=== PATIENT | female | born 1945 | race Caucasian/White ===

== ENCOUNTER → 2017-12-23 13:23 | Outpatient (CLI) | payer OTHER, SELFPAY ==
--- NOTE | 2017-12-23 | DI.MG.S_ITS ---
BILATERAL DIGITAL SCREENING MAMMOGRAM 3D/2D WITH CAD: 12/23/2017 CLINICAL: Routine screening. Comparison is made to exams dated: 08/04/2015 mammogram, 08/12/2013 mammogram, and 08/11/2012 mammogram - [facility]. There are scattered fibroglandular elements in both breasts. Current study was also evaluated with a Computer Aided Detection (CAD) system. No significant masses, calcifications, or other findings are seen in either breast. There has been no significant interval change. IMPRESSION: NEGATIVE There is no mammographic evidence of malignancy. A 1 year screening mammogram is recommended. This exam was interpreted at Station ID: [id number]. NOTE: For mammograms, a report in lay terms will be sent to the patient. Approximately 15% of breast malignancies will not be visualized mammographically. In the management of a palpable breast mass, a negative mammogram must not discourage biopsy of a clinically suspicious lesion. Electronically Signed By: Kobi olvera/kadeem:12/23/2017 16:17:09 letter sent: Normal Exam ACR BI-RADS Category 1: Negative [id number]
== END ==
PROVIDERS: Family Provider Internal Medicine; PCP Internal Medicine
DX: Z12.31 Encounter for screening mammogram for malignant neoplasm of breast (principal)
CPT/HCPCS: 77063; 77067

== ENCOUNTER → 2018-02-25 07:28 | Outpatient (CLI) | payer OTHER, SELFPAY ==
[2018-02-25 08:26] LABS: Hemoglobin A1C% w Est Avg Glu 5.6 % (4.0-6.0)
[2018-02-25 08:29] LABS: Blood Urea Nitrogen 34 mg/dL (7-17); Calcium 9.8 mg/dL (8.4-10.2); Carbon Dioxide 26 mmol/L (22-32); Chloride 102 mmol/L (98-107); Estimated Glomerular Filt Rate 29.6 mL/min (>60); Glucose 108 mg/dL (80-110); HEMOLYSIS < 15 (0-50); Sodium 138 mmol/L (137-145)
== END ==
PROVIDERS: Family Provider Internal Medicine; PCP Internal Medicine; Visit Provider Internal Medicine
DX: I10 Essential (primary) hypertension (principal); E11.9 Type 2 diabetes mellitus without complications; N18.2 Chronic kidney disease, stage 2 (mild)
CPT/HCPCS: 36415; 80048; 83036

== ENCOUNTER → 2018-03-03 11:19 | Outpatient (CLI) | payer OTHER, SELFPAY ==
[2018-03-03 12:13] LABS: Add Manual Diff / Slide Review NO; Basophils Percent Auto 1.1 % (0-2); Eosinophils Percent Auto 12.3 % (2-4); Hematocrit 30.4 % (36-46); Hemoglobin 10.5 g/dL (12.0-16.0); Lymphocytes Percent Auto 20.7 % (25-40); Mean Corpuscular HGB Conc 34.4 % (30-36); Mean Corpuscular Hemoglobin 30.9 PG (26-34); Mean Corpuscular Volume 89.8 fL (80-100); Monocytes Percent Auto 6.2 % (3-14); Neutrophils Absolute Auto 3500 /uL (3000-5900); Neutrophils Percent Auto 59.7 % (50-75); Platelet Count 307 X10^3/uL (150-400); Red Blood Cell Count 3.39 X10^6/uL (4.0-5.2); Red Cell Distribution Width 13.3 % (11.6-14.8); White Blood Cell Count 5.9 X10^3/uL (4.5-11.0)
[2018-03-03 14:10] LABS: Free T4, Direct Thyroxine 1.04 ng/dL (0.78-2.19)
[2018-03-03 14:24] LABS: Thyroid Stimulating Hormone 2.14 uIU/mL (0.47-4.68)
== END ==
PROVIDERS: Family Provider Internal Medicine; PCP Internal Medicine; Visit Provider Internal Medicine
DX: G47.00 Insomnia, unspecified (principal); J00 Acute nasopharyngitis [common cold]; R53.83 Other fatigue
CPT/HCPCS: 36415; 84439; 84443; 85025

== ENCOUNTER → 2018-04-23 13:03 | Outpatient (CLI) | payer OTHER, SELFPAY ==
--- NOTE | 2018-04-23 | DI.US.S_ITS ---
PROCEDURE: US RENAL COMPLETE INDICATIONS: CKD POST MENOPAUSAL TECHNIQUE: Real-time scanning was performed of the kidneys and bladder, with image documentation. COMPARISON: None. FINDINGS: Kidneys: Kidneys are normal in size. Right kidney measures 10.5 cm long; left kidney measures 10.6 cm long. Right renal cortical thickness is 1.6 cm; left renal cortical thickness is 1.4 cm. Renal cortical echotexture is slightly increased bilaterally. No hydronephrosis or nephrolithiasis. No suspicious solid mass lesions. 1.3 cm right renal cortical cyst. Bladder: Pre-void bladder volume is 37 mL. Post-void residual is not assessed. Pre-void images demonstrate no intraluminal masses or stones. On pre-void images, neither ureteral jets are noted with color Doppler interrogation. (Of note, ureteral jets may not be detectable in up to 25% of cases due to insufficient differences in specific gravity between ureteral and bladder urine). Miscellaneous: No free pelvic fluid. IMPRESSION: Mild increase in renal cortical echogenicity suggesting mild medical renal disease and small right renal cyst. Dictated by: Jim Hills [facility] Interpreted: Jeanna Barrett MD on 04/23/2018 at 13:54 Approved by: Jeanna Barrett MD, PhD on 04/23/2018 at 15:09
== END ==
PROVIDERS: Family Provider Internal Medicine; PCP Internal Medicine
DX: E11.22 Type 2 diabetes mellitus with diabetic chronic kidney disease (principal); N18.9 Chronic kidney disease, unspecified; N28.1 Cyst of kidney, acquired; M85.852 Other specified disorders of bone density and structure, left thigh; Z78.0 Asymptomatic menopausal state; Z87.891 Personal history of nicotine dependence
CPT/HCPCS: 76770; 77080

== ENCOUNTER → 2018-12-18 07:42 | Outpatient (CLI) | payer OTHER, SELFPAY ==
[2018-12-18 09:21] LABS: Hemoglobin A1C% w Est Avg Glu 5.7 % (4.0-6.0)
[2018-12-18 09:32] LABS: Alanine Aminotransferase 21 IU/L (9-52); Albumin 4.1 g/dL (3.5-5.0); Albumin Globulin Ratio 1.6 (1.0-2.8); Alkaline Phosphatase 57 U/L (38-126); Aspartate Aminotransferase 21 IU/L (14-36); BUN Creatinine Ratio 21.3 (6-22); Bilirubin Total 0.4 mg/dL (0.2-1.3); Blood Urea Nitrogen 32 mg/dL (7-17); Calcium 9.7 mg/dL (8.4-10.2); Carbon Dioxide 26 mmol/L (22-32); Chloride 107 mmol/L (98-107); Estimated Glomerular Filt Rate 34.1 mL/min (>60); Globulin 2.6 g/dL (1.7-4.1); Glucose 112 mg/dL (80-110); HEMOLYSIS < 15 (0-50); Potassium 4.3 mmol/L (3.4-5.1); Sodium 141 mmol/L (137-145); Total Protein 6.7 g/dL (6.3-8.2)
== END ==
PROVIDERS: PCP Internal Medicine; Visit Provider Internal Medicine
DX: E11.9 Type 2 diabetes mellitus without complications (principal); I10 Essential (primary) hypertension; N18.3 Chronic kidney disease, stage 3 (moderate)
CPT/HCPCS: 36415; 80053; 83036

== ENCOUNTER → 2019-05-04 07:41 | Outpatient (CLI) | payer OTHER, SELFPAY ==
[2019-05-04 08:38] LABS: BUN Creatinine Ratio 20.7 (6-22); Blood Urea Nitrogen 29 mg/dL (7-17); Calcium 10.1 mg/dL (8.4-10.2); Carbon Dioxide 24 mmol/L (22-32); Chloride 105 mmol/L (98-107); Estimated Glomerular Filt Rate 36.9 mL/min (>60); Glucose 119 mg/dL (80-110); HEMOLYSIS < 15 (0-50); Potassium 4.4 mmol/L (3.4-5.1); Sodium 139 mmol/L (137-145)
[2019-05-04 09:08] LABS: Hemoglobin A1C% w Est Avg Glu 5.6 % (4.0-6.0)
== END ==
PROVIDERS: PCP Internal Medicine; Visit Provider Internal Medicine
DX: N18.3 Chronic kidney disease, stage 3 (moderate) (principal); E11.9 Type 2 diabetes mellitus without complications
CPT/HCPCS: 36415; 80048; 83036

== ENCOUNTER 2019-09-15 10:30 | Outpatient (RCR) | payer OTHER, SELFPAY ==
--- NOTE | 2019-09-08 12:27 | PT.OIE ---
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) Mixed hyperlipidemia (Chronic) Polymyositis (Inactive 04/24/11) Right bundle branch block (RBBB) (Inactive 04/26/15) Spinal stenosis (Chronic) Type 2 diabetes mellitus without complication (Chronic) Past Surgical History (Last Reviewed 06/03/18 @ 14:29 by Moe Salmon MD) Status post laminectomy (Resolved 05/2015) Visit Care Team Role Provider Type Moe Salmon MD Attending Provider Physician Primary Care Provider Referring Provider Specialty: Internal Medicine Address: [address] [place] [address], [address], [facility] Email: [email or web address] Physical Therapy Initial Evaluation PT-OP-A Visit Information Start: 09/08/19 11:56 Freq: Status: Active Protocol: Document 09/08/19 11:10 HH (Rec: 09/08/19 12:27 [email or web address]) Out-Patient Physical Therapy Visit Information Visit Information Visit Type Initial Evaluation Visit Start Time 11:10 Visit Stop Time 11:50 Total Visit Minutes 40 Visit Number 08/05 Number of PROJECT DESIGNER Visits 0 Evaluation Information Evaluation Date 09/08/19 PT-OP-B Current Condition Start: 09/08/19 11:56 Freq: Status: Active Protocol: Document 09/08/19 11:10 HH (Rec: 09/08/19 12:27 [email or web address]) Current Condition History of Current Condition Onset Date February, Current Complaints L knee and hip pain, difficulty in walking History of Current Condition Pt is a 74yo female presented to clinic with L knee and hip pain. Per EMR from her visit with Dr. Salmon, Pt clearly remembers injuring the the L knee in February hitting it on a coffee table on the inside of the knee. It hurt for couple weeks but got better and was fine for couple more weeks and then she did the same exact injury 1 more time on the same piece of furniture. That healed up and was better but over the last 2 or 3 months has had increasing pain very much like that before. Hurts along the inside of the knee specially when she walks any distance. Pt stated prolonged walking will increase soreness, and bending / stair climbing will increase her pain as well. Lying down with knee slightly bent feels the best. She also noticed getting up from chair does both her sometimes. Pt usually walk >9000 steps a day prior to injury without any knee discomfort. Prior Treatments and Tests Had PT years ago for her post op back surgery Treatment Goals Patient/Caregiver Goals 1. To walk >9000 steps a day without discomfort 2. Able to regain full knee ROM 3. Able to participate strength and balance class at [facility]. Current Functional Impairments (Reported) Functional Limitations- Mobility/Gait Pt has to use staggered stance with L LE out to stand up and primarily WB through R LE. Personal Factors Other Personal Factors That May Effect Osteopenia Therapy/Recovery DM II PT-OP-C Subjective Start: 09/08/19 11:56 Freq: Status: Active Protocol: Document 09/08/19 11:10 HH (Rec: 09/08/19 12:27 [email or web address]) OP-PT Subjective Patient Comments Patient Comments It has been a lot better but it still bothers me. Patient Questionnaires Lower Extremity Functional Scale LEFS Score 37 LEFS Impairment 40 to 59% Impaired (Score 32- 47) OP-PT Pain Assessment Location L knee Pain Location Details medial-inferior to patella Intensity 4 Scale Used Numeric (1 - 10) Description Aching,Dull,Pressure Frequency Intermittent Pain Aggravating Factors Activity,Exercise,Walking, Stair Climbing Pain Alleviating Factors Inactivity,Lying Supine PT-OP-D Balance Start: 09/08/19 11:56 Freq: Status: Active Protocol: Document 09/08/19 11:10 HH (Rec: 09/08/19 12:27 [email or web address]) Balance Tests Single Limb Standing Single Limb- Right 3 Single Limb- Left 0 PT-OP-F Manual Assessment Start: 09/08/19 11:56 Freq: Status: Active Protocol: Document 09/08/19 11:10 HH (Rec: 09/08/19 12:27 [email or web address]) Manual Assessments Soft Tissue Assessment Soft Tissue Mobility Assessment Significant tenderness to pressure at IT band, TFL, hip abductors and extensors L>R Tenderness to touch at medial tibial plateau PT-OP-G Mobility & Gait Start: 09/08/19 11:56 Freq: Status: Active Protocol: Document 09/08/19 11:10 HH (Rec: 09/08/19 12:27 [email or web address]) OP Gait Assessment Gait Deviations General Gait Pattern Ataxic,Decreased Stride Length ,Decreased Feet Clearance Factors Limiting Gait Function Factors Limiting Gait Function Decreased Strength,Limited Range of Motion,Pain,Poor Balance Comments Gait Comments Pt has a significant knock knee gait pattern with knee valgus L>R, along with excessive trendenlenberg sign on L during LLE stance phase. PT-OP-J Posture/Palpation/Skin Start: 09/08/19 11:56 Freq: Status: Active Protocol: Document 09/08/19 11:10 HH (Rec: 09/08/19 12:27 [email or web address]) Posture Evaluation Position Standing Evaluation View Anterior Weight Distribution Weight Shifted Right Knee Posture (L) Genu Valgus,(R) Genu Valgus,(L) Ext. Tibial Torsion ,(R) Ext. Tibial Torsion,(L) Excess Flexion Patellar Posture (L) Laterally Tilted Ankle/Foot Posture (L) Plantarflexed,(R) Plantarflexed,(L) Supinated,(R ) Supinated,(L) Forefoot Abducted,(R) Forefoot Abducted PT-OP-K Range of Motion Start: 09/08/19 11:56 Freq: Status: Active Protocol: Document 09/08/19 11:10 HH (Rec: 09/08/19 12:27 [email or web address]) Hip Goniometric Range of Motion Hip Left Active Hip ROM WFL Yes Internal Rotation 40 External Rotation 30 Right Active Hip ROM WFL Yes Testing Position Prone Internal Rotation 32 External Rotation 35 Knee Goniometric Range of Motion Knee Right Knee ROM WFL Yes Patient Position Supine Flexion Active (degrees) 134 Extension Active (degrees) 0 Left Knee ROM WFL No Patient Position Supine Flexion Active (degrees) 114 Extension Active (degrees) 4 Knee ROM Limitations Knee ROM Limitations Soft Tissue Tightness,Pain Comments medial knee pain with flexion at end range, pain free with extension. Ankle and Foot Goniometric Range of Motion Ankle and Foot Right Active Inversion 20 Eversion 0 Left Active Ankle/Foot ROM WFL No Testing Position Supine Inversion 22 Eversion 0 PT-OP-L Special Tests Start: 09/08/19 11:56 Freq: Status: Active Protocol: Document 09/08/19 11:10 HH (Rec: 09/08/19 12:27 [email or web address]) Special Tests Knee Special Tests MCl/LCL Test Results -ve B Varus- 25 Degrees Test Results -ve B Varus- 0 Degrees Test Results -ve B Valgus- 25 Degrees Test Results -ve B Valgus- 0 Degrees Test Results -ve B Devin's Test Results -ve B ERLIN Test Results -ve B Anterior Draw Test Results -ve B PT-OP-M Strength Start: 09/08/19 11:56 Freq: Status: Active Protocol: Document 09/08/19 11:10 HH (Rec: 09/08/19 12:27 [email or web address]) Hip Strength Hip Manual Muscle Testing Right Flexion (L2) 4+ Good+ Extension (S1) 4+ Good+ Abduction 4+ Good+ Adduction 4+ Good+ Left Flexion (L2) 4- Good- Extension (S1) 4 Good Abduction 4- Good- Adduction 4 Good Knee Strength Knee Manual Muscle Testing Right Flexion (S2) 4+ Good+ Extension (L3) 4+ Good+ Left Flexion (S2) 4- Good- Extension (L3) 4- Good- PT-OP-Q Treatments Start: 09/08/19 11:56 Freq: Status: Active Protocol: Document 09/08/19 11:10 (Rec: 09/08/19 12:27 [email or web address]) Manual Therapy Treatment Soft Tissue Mobilization glute Body Location L Mobilization Type Sustained Pressure,Trigger Point Release Intensity/Depth Moderate Body Position Prone IT/Tfl Body Location L Mobilization Type Sustained Pressure,Trigger Point Release Intensity/Depth Moderate Body Position Supine quad Body Location L Mobilization Type Sustained Pressure,Trigger Point Release Intensity/Depth Moderate Body Position Supine PT-OP-T Assessment and Plan Start: 09/08/19 11:56 Freq: Status: Active Protocol: Document 09/08/19 11:10 HH (Rec: 09/08/19 12:27 [email or web address]) Physical Therapy Assessment Rehab Potential Rehabilitation Potential Excellent Evaluation Complexity Number of Personal Factors/Comorbidities 1-2 Number of Body Systems Impaired 1-2 Clinical Presentation at Evaluation Stable Goals sit to stand Impairment Pt uses staggered stance to stand up from chair. Porcelain Enameling Supervisor Goal (LTG) Pt will be able to stand up with even feet placement to stand up without compensating through R LE. LTG Duration 8 weeks ROM Impairment L knee AROM= 5- 114 degrees Porcelain Enameling Supervisor Goal (LTG) Pt will reach WFL knee AROM from <5- 134 degrees without knee discomfort to optimize her gait pattern. LTG Duration 8 weeks activity tolerance Impairment pt could only walk up to 7K steps now Short Term Goal (STG) Pt will be able to walk >7k steps a day with L knee pain no more than 2/10 STG Duration 4 weeks Porcelain Enameling Supervisor Goal (LTG) Pt will be able to walk >9k steps a day without any knee discomfort. LTG Duration 8 weeks LEFS Impairment Pt scores LEFS= 37 (40-59% impairments) Short Term Goal (STG) Pt will improve LEFS score to be < 20-39% impairment STG Duration 4 weeks Longterm Goal (LTG) Pt will improve LEFS score to be < 1-19 % impairment to improve her quality of life LTG Duration 8 weeks Assessment Summary Assessment Pt is a 74yo female presented to clinic with L knee and hip pain. Pt was referred by Dr. Kearns with a possible MCL strain. However, pt was negative for all ligamentous tests. Although pt presents a very significant knock knee gait pattern L worse than R possibly d/t her very limited B ankle eversion, pt did not have any knee discomfort because of that prior to this injury. Pt primarily has pain to touch at medial tibial plateau only which indicates a possible bone contusion and her pain/discomfort got reduced after manual therapy at quad/ IT band and gluteal, along with immediate improved knee AROM. Pt will benefit from skilled therapy to improve her pain sensitivity, strengthen her L knee and hip and overall balance. Physical Therapy Plan Frequency and Duration Frequency of Treatment 2x/Week Duration of Treatment 8 weeks Plan of Care Start Date 09/08/19 Plan of Care End Date 11/07/19 Therapeutic Interventions Therapeutic Interventions Balance Training,Gait Training ,Home Exercise Program,Joint Mobilizations,Manual Therapy, Neuromuscular Re-education, Patient/Caregiver Education, Self-Care/Home Management,Soft Tissue Mobilization,Taping, Therapeutic Activities, Therapeutic Exercises Modalities Cold Pack/Ice Massage,Electric Stimulation,Hot Packs, Infrared Therapy,Ultrasound Next Visit Focus/Plan Next Note Type Treatment Note Next Visit Plan start with STM at tibial medial plateau, R IT band, TFL ,glute knee AROM, start biking if possible hip abd / extension strengthening
--- NOTE | 2019-09-11 15:20 | PT.OTN ---
Current Diagnoses Pain in left knee (09/11/19) Sprain of medial collateral ligament of left knee, initial encounter (09/11/19) Physical Therapy Treatment Note PT-OP-A Visit Information Start: 09/08/19 11:56 Freq: Status: Active Protocol: Document 09/11/19 14:19 LRN (Rec: 09/11/19 15:20 LRN [id number]) Out-Patient Physical Therapy Visit Information Visit Information Visit Type Treatment Note Visit Start Time 14:19 Visit Stop Time 15:05 Total Visit Minutes 46 Visit Number 09/05 Number of COMMERCIAL ROOFING ESTIMATOR Visits 0 Evaluation Information Evaluation Date 09/08/19 PT-OP-B Current Condition Start: 09/08/19 11:56 Freq: Status: Active Protocol: Document 09/08/19 11:10 HH (Rec: 09/08/19 12:27 HH [email or web address]) Current Condition History of Current Condition Onset Date February, Current Complaints L knee and hip pain, difficulty in walking History of Current Condition Pt is a 74yo female presented to clinic with L knee and hip pain. Per EMR from her visit with Dr. Salmon, Pt clearly remembers injuring the the L knee in February hitting it on a coffee table on the inside of the knee. It hurt for couple weeks but got better and was fine for couple more weeks and then she did the same exact injury 1 more time on the same piece of furniture. That healed up and was better but over the last 2 or 3 months has had increasing pain very much like that before. Hurts along the inside of the knee specially when she walks any distance. Pt stated prolonged walking will increase soreness, and bending / stair climbing will increase her pain as well. Lying down with knee slightly bent feels the best. She also noticed getting up from chair does both her sometimes. Pt usually walk >9000 steps a day prior to injury without any knee discomfort. Prior Treatments and Tests Had PT years ago for her post op back surgery Treatment Goals Patient/Caregiver Goals 1. To walk >9000 steps a day without discomfort 2. Able to regain full knee ROM 3. Able to participate strength and balance class at [facility]. Current Functional Impairments (Reported) Functional Limitations- Mobility/Gait Pt has to use staggered stance with L LE out to stand up and primarily WB through R LE. Personal Factors Other Personal Factors That May Effect Osteopenia Therapy/Recovery DM II PT-OP-C Subjective Start: 09/08/19 11:56 Freq: Status: Active Protocol: Document 09/11/19 14:19 LRN (Rec: 09/11/19 15:20 LRN [id number]) OP-PT Subjective Patient Comments Patient Comments Feels a little better, pain has moved up a little. Hurts the worst when she bends her knee. PT-OP-D Balance Start: 09/08/19 11:56 Freq: Status: Active Protocol: Document 09/08/19 11:10 HH (Rec: 09/08/19 12:27 HH [email or web address]) Balance Tests Single Limb Standing Single Limb- Right 3 Single Limb- Left 0 PT-OP-F Manual Assessment Start: 09/08/19 11:56 Freq: Status: Active Protocol: Document 09/08/19 11:10 HH (Rec: 09/08/19 12:27 HH [email or web address]) Manual Assessments Soft Tissue Assessment Soft Tissue Mobility Assessment Significant tenderness to pressure at IT band, TFL, hip abductors and extensors L>R Tenderness to touch at medial tibial plateau PT-OP-G Mobility & Gait Start: 09/08/19 11:56 Freq: Status: Active Protocol: Document 09/08/19 11:10 HH (Rec: 09/08/19 12:27 HH [email or web address]) OP Gait Assessment Gait Deviations General Gait Pattern Ataxic,Decreased Stride Length ,Decreased Feet Clearance Factors Limiting Gait Function Factors Limiting Gait Function Decreased Strength,Limited Range of Motion,Pain,Poor Balance Comments Gait Comments Pt has a significant knock knee gait pattern with knee valgus L>R, along with excessive trendenlenberg sign on L during LLE stance phase. PT-OP-J Posture/Palpation/Skin Start: 09/08/19 11:56 Freq: Status: Active Protocol: Document 09/08/19 11:10 HH (Rec: 09/08/19 12:27 HH [email or web address]) Posture Evaluation Position Standing Evaluation View Anterior Weight Distribution Weight Shifted Right Knee Posture (L) Genu Valgus,(R) Genu Valgus,(L) Ext. Tibial Torsion ,(R) Ext. Tibial Torsion,(L) Excess Flexion Patellar Posture (L) Laterally Tilted Ankle/Foot Posture (L) Plantarflexed,(R) Plantarflexed,(L) Supinated,(R ) Supinated,(L) Forefoot Abducted,(R) Forefoot Abducted PT-OP-K Range of Motion Start: 09/08/19 11:56 Freq: Status: Active Protocol: Document 09/08/19 11:10 (Rec: 09/08/19 12:27 [email or web address]) Hip Goniometric Range of Motion Hip Left Active Hip ROM WFL Yes Internal Rotation 40 External Rotation 30 Right Active Hip ROM WFL Yes Testing Position Prone Internal Rotation 32 External Rotation 35 Knee Goniometric Range of Motion Knee Right Knee ROM WFL Yes Patient Position Supine Flexion Active (degrees) 134 Extension Active (degrees) 0 Left Knee ROM WFL No Patient Position Supine Flexion Active (degrees) 114 Extension Active (degrees) 4 Knee ROM Limitations Knee ROM Limitations Soft Tissue Tightness,Pain Comments medial knee pain with flexion at end range, pain free with extension. Ankle and Foot Goniometric Range of Motion Ankle and Foot Right Active Inversion 20 Eversion 0 Left Active Ankle/Foot ROM WFL No Testing Position Supine Inversion 22 Eversion 0 PT-OP-L Special Tests Start: 09/08/19 11:56 Freq: Status: Active Protocol: Document 09/08/19 11:10 (Rec: 09/08/19 12:27 [email or web address]) Special Tests Knee Special Tests MCl/LCL Test Results -ve B Varus- 25 Degrees Test Results -ve B Varus- 0 Degrees Test Results -ve B Valgus- 25 Degrees Test Results -ve B Valgus- 0 Degrees Test Results -ve B Devin's Test Results -ve B ERLIN Test Results -ve B Anterior Draw Test Results -ve B PT-OP-M Strength Start: 09/08/19 11:56 Freq: Status: Active Protocol: Document 09/08/19 11:10 (Rec: 09/08/19 12:27 [email or web address]) Hip Strength Hip Manual Muscle Testing Right Flexion (L2) 4+ Good+ Extension (S1) 4+ Good+ Abduction 4+ Good+ Adduction 4+ Good+ Left Flexion (L2) 4- Good- Extension (S1) 4 Good Abduction 4- Good- Adduction 4 Good Knee Strength Knee Manual Muscle Testing Right Flexion (S2) 4+ Good+ Extension (L3) 4+ Good+ Left Flexion (S2) 4- Good- Extension (L3) 4- Good- PT-OP-Q Treatments Start: 09/08/19 11:56 Freq: Status: Active Protocol: Document 09/11/19 14:19 LRN (Rec: 09/11/19 15:20 LRN [id number]) Therapeutic Exercises Supine Exercises Heel slides Supine Exercise Name Heel slides Side left Reps/Minutes 10 x 3 Comments Painfree range is 75 deg's flexion. Hip AD Supine Exercise Name Hip AD Side left Resistance lev 2 Tband Reps/Minutes 5x w/o resistance, 10 x 3 Sitting Exercises Actvie knee ext Sitting Exercise Name Ext with end range hold Side left Reps/Minutes 8x Active knee flex Sitting Exercise Name Flex with end range hold Side left Reps/Minutes 8x Manual Therapy Treatment Soft Tissue Mobilization IT/Tfl Body Location L Mobilization Type Sustained Pressure,Trigger Point Release Intensity/Depth Moderate Body Position Supine quad Body Location L Mobilization Type Sustained Pressure,Trigger Point Release Intensity/Depth Moderate Body Position Supine Taping K-tape Body Location L superomedial patella Treatment Focus Patch test: space correction Type of Tape Kinesio Tape Skin Inspection Good Comments Pt I/S in signs of allergic rxn and removal of tape if signs are present. Pt I/S in safe and proper removal of tape. PT-OP-R Modalities Start: 09/08/19 11:56 Freq: Status: Active Protocol: Document 09/11/19 14:19 LRN (Rec: 09/11/19 15:20 LRN [id number]) Ultrasound Therapy Treatment L superomedial patella Treatment Duration (minutes) 8 Patient Position Supine Applicator Size (cm2) 2 Frequency Setting (mHz) 1 Mode Setting Pulsed Duty Cycle 50% Intensity Setting (w/cm2) 1.5 Comments L superomedial patella. L knee painfree active flex after rx is 110 deg's (75 deg' s prior to US). PT-OP-T Assessment and Plan Start: 09/08/19 11:56 Freq: Status: Active Protocol: Document 09/11/19 14:19 LRN (Rec: 09/11/19 15:20 LRN [id number]) Physical Therapy Assessment Goals sit to stand Impairment Pt uses staggered stance to stand up from chair. Power Regulator Goal (LTG) Pt will be able to stand up with even feet placement to stand up without compensating through R LE. LTG Duration 8 weeks ROM Impairment L knee AROM= 5- 114 degrees [facility] Goal (LTG) Pt will reach WFL knee AROM from <5- 134 degrees without knee discomfort to optimize her gait pattern. LTG Duration 8 weeks activity tolerance Impairment pt could only walk up to 7K steps now Short Term Goal (STG) Pt will be able to walk >7k steps a day with L knee pain no more than 2/10 STG Duration 4 weeks [facility] Goal (LTG) Pt will be able to walk >9k steps a day without any knee discomfort. LTG Duration 8 weeks LEFS Impairment Pt scores LEFS= 37 (40-59% impairments) Short Term Goal (STG) Pt will improve LEFS score to be < 20-39% impairment STG Duration 4 weeks Power Regulator Goal (LTG) Pt will improve LEFS score to be < 1-19 % impairment to improve her quality of life LTG Duration 8 weeks Assessment Summary Assessment 74 yo female with decreased L knee pain since last appt. After today's appt the pt had regained painfree ROM and felt her walking was quite good. She had pain with palpation at her L medial quad tendon, and some tenderness in her IT band. Some good relief of pain with STM & US. Physical Therapy Plan Frequency and Duration Frequency of Treatment 2x/Week Duration of Treatment 8 weeks Plan of Care Start Date 09/08/19 Plan of Care End Date 11/07/19 Next Visit Focus/Plan Next Note Type Treatment Note Next Visit Plan Assess response to K-tape. Start biking if possible, STM L knee (?at tibial medial plateau), R IT band, TFL , glute, knee AROM, hip add /extension and core strengthening.
--- NOTE | 2019-09-15 11:16 | PT.OTN ---
Current Diagnoses Pain in left knee (09/15/19) Sprain of medial collateral ligament of left knee, initial encounter (09/15/19) Physical Therapy Treatment Note PT-OP-A Visit Information Start: 09/08/19 11:56 Freq: Status: Active Protocol: Document 09/15/19 10:35 HH (Rec: 09/15/19 11:15 [id number]) Out-Patient Physical Therapy Visit Information Visit Information Visit Type Treatment Note Visit Start Time 10:35 Visit Stop Time 11:20 Total Visit Minutes 45 Visit Number 3/ Number of FREELANCE COPYWRITER Visits 0 PT-OP-B Current Condition Start: 09/08/19 11:56 Freq: Status: Active Protocol: Document 09/08/19 11:10 HH (Rec: 09/08/19 12:27 HH [email or web address]) Current Condition History of Current Condition Onset Date February, Current Complaints L knee and hip pain, difficulty in walking History of Current Condition Pt is a 74yo female presented to clinic with L knee and hip pain. Per EMR from her visit with Dr. Salmon, Pt clearly remembers injuring the the L knee in February hitting it on a coffee table on the inside of the knee. It hurt for couple weeks but got better and was fine for couple more weeks and then she did the same exact injury 1 more time on the same piece of furniture. That healed up and was better but over the last 2 or 3 months has had increasing pain very much like that before. Hurts along the inside of the knee specially when she walks any distance. Pt stated prolonged walking will increase soreness, and bending / stair climbing will increase her pain as well. Lying down with knee slightly bent feels the best. She also noticed getting up from chair does both her sometimes. Pt usually walk >9000 steps a day prior to injury without any knee discomfort. Prior Treatments and Tests Had PT years ago for her post op back surgery Treatment Goals Patient/Caregiver Goals 1. To walk >9000 steps a day without discomfort 2. Able to regain full knee ROM 3. Able to participate [facility]. Current Functional Impairments (Reported) Functional Limitations- Mobility/Gait Pt has to use staggered stance with L LE out to stand up and primarily WB through R LE. Personal Factors Other Personal Factors That May Effect Osteopenia Therapy/Recovery DM II PT-OP-C Subjective Start: 09/08/19 11:56 Freq: Status: Active Protocol: Document 09/15/19 10:35 HH (Rec: 09/15/19 11:15 HH [id number]) OP-PT Subjective Patient Comments Patient Comments Kady been feeling better since evaluation. The tape helped me because of giving me stability but climbing stairs still bothers me. Patient Reported Progress Improving PT-OP-D Balance Start: 09/08/19 11:56 Freq: Status: Active Protocol: Document 09/08/19 11:10 HH (Rec: 09/08/19 12:27 HH [email or web address]) Balance Tests Single Limb Standing Single Limb- Right 3 Single Limb- Left 0 PT-OP-F Manual Assessment Start: 09/08/19 11:56 Freq: Status: Active Protocol: Document 09/08/19 11:10 HH (Rec: 09/08/19 12:27 HH [email or web address]) Manual Assessments Soft Tissue Assessment Soft Tissue Mobility Assessment Significant tenderness to pressure at IT band, TFL, hip abductors and extensors L>R Tenderness to touch at medial tibial plateau PT-OP-G Mobility & Gait Start: 09/08/19 11:56 Freq: Status: Active Protocol: Document 09/08/19 11:10 HH (Rec: 09/08/19 12:27 HH [email or web address]) OP Gait Assessment Gait Deviations General Gait Pattern Ataxic,Decreased Stride Length ,Decreased Feet Clearance Factors Limiting Gait Function Factors Limiting Gait Function Decreased Strength,Limited Range of Motion,Pain,Poor Balance Comments Gait Comments Pt has a significant knock knee gait pattern with knee valgus L>R, along with excessive trendenlenberg sign on L during LLE stance phase. PT-OP-J Posture/Palpation/Skin Start: 09/08/19 11:56 Freq: Status: Active Protocol: Document 09/08/19 11:10 HH (Rec: 09/08/19 12:27 HH [email or web address]) Posture Evaluation Position Standing Evaluation View Anterior Weight Distribution Weight Shifted Right Knee Posture (L) Genu Valgus,(R) Genu Valgus,(L) Ext. Tibial Torsion ,(R) Ext. Tibial Torsion,(L) Excess Flexion Patellar Posture (L) Laterally Tilted Ankle/Foot Posture (L) Plantarflexed,(R) Plantarflexed,(L) Supinated,(R ) Supinated,(L) Forefoot Abducted,(R) Forefoot Abducted PT-OP-K Range of Motion Start: 09/08/19 11:56 Freq: Status: Active Protocol: Document 09/08/19 11:10 (Rec: 09/08/19 12:27 [email or web address]) Hip Goniometric Range of Motion Hip Left Active Hip ROM WFL Yes Internal Rotation 40 External Rotation 30 Right Active Hip ROM WFL Yes Testing Position Prone Internal Rotation 32 External Rotation 35 Knee Goniometric Range of Motion Knee Right Knee ROM WFL Yes Patient Position Supine Flexion Active (degrees) 134 Extension Active (degrees) 0 Left Knee ROM WFL No Patient Position Supine Flexion Active (degrees) 114 Extension Active (degrees) 4 Knee ROM Limitations Knee ROM Limitations Soft Tissue Tightness,Pain Comments medial knee pain with flexion at end range, pain free with extension. Ankle and Foot Goniometric Range of Motion Ankle and Foot Right Active Inversion 20 Eversion 0 Left Active Ankle/Foot ROM WFL No Testing Position Supine Inversion 22 Eversion 0 PT-OP-L Special Tests Start: 09/08/19 11:56 Freq: Status: Active Protocol: Document 09/08/19 11:10 (Rec: 09/08/19 12:27 [email or web address]) Special Tests Knee Special Tests MCl/LCL Test Results -ve B Varus- 25 Degrees Test Results -ve B Varus- 0 Degrees Test Results -ve B Valgus- 25 Degrees Test Results -ve B Valgus- 0 Degrees Test Results -ve B Devin's Test Results -ve B ERLIN Test Results -ve B Anterior Draw Test Results -ve B PT-OP-M Strength Start: 09/08/19 11:56 Freq: Status: Active Protocol: Document 09/08/19 11:10 (Rec: 09/08/19 12:27 [email or web address]) Hip Strength Hip Manual Muscle Testing Right Flexion (L2) 4+ Good+ Extension (S1) 4+ Good+ Abduction 4+ Good+ Adduction 4+ Good+ Left Flexion (L2) 4- Good- Extension (S1) 4 Good Abduction 4- Good- Adduction 4 Good Knee Strength Knee Manual Muscle Testing Right Flexion (S2) 4+ Good+ Extension (L3) 4+ Good+ Left Flexion (S2) 4- Good- Extension (L3) 4- Good- PT-OP-Q Treatments Start: 09/08/19 11:56 Freq: Status: Active Protocol: Document 09/15/19 10:35 HH (Rec: 09/15/19 11:15 [id number]) Therapeutic Exercises Supine Exercises hip labor supervisor Supine Exercise Name hip ER Side bilateral Equipment Used yellow band Reps/Minutes 12 x2 Heel slides Supine Exercise Name Heel slides Side left Reps/Minutes 10 x2 Comments Painfree range is 75 deg's flexion. Sitting Exercises Actvie knee ext Sitting Exercise Name Ext with end range hold Side left Reps/Minutes 8x Active knee flex Sitting Exercise Name Flex with end range hold Side left Reps/Minutes 8x Manual Therapy Treatment Soft Tissue Mobilization glute Body Location L Mobilization Type Sustained Pressure,Trigger Point Release Intensity/Depth Moderate Body Position Prone IT/Tfl Body Location L Mobilization Type Sustained Pressure,Trigger Point Release Intensity/Depth Moderate Body Position Supine Comments decreased tenderness to pressure quad Body Location L Mobilization Type Sustained Pressure,Trigger Point Release Intensity/Depth Moderate Body Position Supine Taping K-tape Body Location L superomedial patella Treatment Focus Patch test: space correction Type of Tape Kinesio Tape Skin Inspection Good Comments Pt I/S in signs of allergic rxn and removal of tape if signs are present. Pt I/S in safe and proper removal of tape. PT-OP-R Modalities Start: 09/08/19 11:56 Freq: Status: Active Protocol: Document 09/15/19 10:35 HH (Rec: 09/15/19 11:15 [id number]) Hot Pack/Cold Pack Treatment L knee Location L knee Patient Position Hooklying Treatment Duration (minutes) 10 Patient Tolerance Good Comments moist heat PT-OP-T Assessment and Plan Start: 09/08/19 11:56 Freq: Status: Active Protocol: Document 09/15/19 10:35 HH (Rec: 09/15/19 11:15 [id number]) Physical Therapy Assessment Goals ROM Impairment L knee AROM= 5- 114 degrees Drum Reel Cutter Goal (LTG) Pt will reach WFL knee AROM from <5- 134 degrees without knee discomfort to optimize her gait pattern. LTG Duration 8 weeks activity tolerance Impairment pt could only walk up to 7K steps now Short Term Goal (STG) Pt will be able to walk >7k steps a day with L knee pain no more than 2/10 STG Duration 4 weeks Usp Goal (LTG) Pt will be able to walk >9k steps a day without any knee discomfort. LTG Duration 8 weeks LEFS Impairment Pt scores LEFS= 37 (40-59% impairments) Short Term Goal (STG) Pt will improve LEFS score to be < 20-39% impairment STG Duration 4 weeks Usp Goal (LTG) Pt will improve LEFS score to be < 1-19 % impairment to improve her quality of life LTG Duration 8 weeks Assessment Summary Assessment Pt showed reduced pain to pressure at medial knee joint and IT band. Active heel slide is pain free until end range at 132 degrees after manual therapy, denied pain for TKE. Added resisted hip labor supervisor for hip ER strengthening. Pt reports no pain while standing up from chair today and that surprised her. Dis pt to change her schedule to once/ week. Physical Therapy Plan Next Visit Focus/Plan Next Note Type Treatment Note Next Visit Plan Assess response to K-tape. Start biking , STM L knee (?at tibial medial plateau), R IT band, TFL ,glute, hip abd/ ER strengthening SL strengthening to help stair climbing. knee AROM, hip add /extension and core strengthening.
--- NOTE | 2019-10-08 10:12 | PT.OPDS ---
Current Diagnoses Pain in left knee (09/15/19) Sprain of medial collateral ligament of left knee, initial encounter (09/15/19) Visit Care Team Role Provider Type Moe Salmon MD Attending Provider Physician Primary Care Provider Referring Provider Specialty: Internal Medicine Address: [address] [place] [address], [id number] Email: [email or web address] Visit Number Visit Number 10/03 Discharge Summary PT-OP-T Assessment and Plan Start: 09/08/19 11:56 Freq: Status: Active Protocol: Document 10/08/19 10:11 (Rec: 10/08/19 10:12 [email or web address]) Physical Therapy Plan Discharge Physical Therapy Discharge Reasons Goals Met Discharge Comments Called pt today via phone. Pt reports her knees are getting a lot better and able to reach full knee flexion without discomfort. requested to be d/ c from therapy.
== END 2019-10-09 09:17 ==
LOC: PHYS 10:30
PROVIDERS: PCP Internal Medicine; Referring Provider Internal Medicine; Visit Provider Internal Medicine
DX: S83.412A Sprain of medial collateral ligament of left knee, initial encounter (principal); M25.562 Pain in left knee
CPT/HCPCS: 97010; 97035; 97110; 97140; 97161

== ENCOUNTER → 2020-01-06 07:37 | Outpatient (CLI) | payer OTHER, SELFPAY ==
[2020-01-06 09:01] LABS: Hemoglobin A1C% w Est Avg Glu 5.7 % (4.0-6.0)
[2020-01-06 09:02] LABS: Alanine Aminotransferase 19 IU/L (<35); Albumin 3.9 g/dL (3.5-5.0); Albumin Globulin Ratio 1.4 (1.0-2.8); Alkaline Phosphatase 59 U/L (38-126); Aspartate Aminotransferase 24 IU/L (14-36); BUN Creatinine Ratio 14.5 (6-22); Bilirubin Total 0.4 mg/dL (0.2-1.3); Blood Urea Nitrogen 19 mg/dL (7-17); Calcium 9.7 mg/dL (8.4-10.2); Carbon Dioxide 24 mmol/L (22-32); Chloride 101 mmol/L (98-107); Cholesterol 130 mg/dL (140-199); Estimated Glomerular Filt Rate 39.8 mL/min (>60); Globulin 2.7 g/dL (1.7-4.1); Glucose 114 mg/dL (80-110); HDL Cholesterol 47 mg/dL (40-60); HEMOLYSIS < 15 (0-50); LDL Cholesterol Calculated 67 mg/dL (<100); Potassium 4.4 mmol/L (3.4-5.1); Sodium 132 mmol/L (137-145); Total Protein 6.6 g/dL (6.3-8.2); Triglycerides 82 mg/dL (35-150)
== END ==
PROVIDERS: PCP Internal Medicine; Referring Provider Internal Medicine; Visit Provider Internal Medicine
DX: E78.2 Mixed hyperlipidemia (principal); E11.9 Type 2 diabetes mellitus without complications; I10 Essential (primary) hypertension; N18.3 Chronic kidney disease, stage 3 (moderate)
CPT/HCPCS: 36415; 80053; 80061; 83036

== ENCOUNTER → 2020-06-20 11:27 | Outpatient (CLI) | payer OTHER, SELFPAY ==
--- NOTE | 2020-06-20 | DI.MG.S_ITS ---
BILATERAL DIGITAL SCREENING MAMMOGRAM 3D/2D WITH CAD: 06/20/2020 CLINICAL: Routine screening. Comparison is made to exams dated: 12/23/2017 mammogram, 08/04/2015 mammogram, and 08/12/2013 mammogram - [facility]. There are scattered fibroglandular elements in both breasts. Current study was also evaluated with a Computer Aided Detection (CAD) system. No significant masses, calcifications, or other findings are seen in either breast. There has been no significant interval change. IMPRESSION: NEGATIVE There is no mammographic evidence of malignancy. A 1 year screening mammogram is recommended. This exam was interpreted at Station ID: [id number]. NOTE: For mammograms, a report in lay terms will be sent to the patient. Approximately 15% of breast malignancies will not be visualized mammographically. In the management of a palpable breast mass, a negative mammogram must not discourage biopsy of a clinically suspicious lesion. Electronically Signed By: Lawanda cuello/kadeem:06/20/2020 16:36:53 letter sent: Normal Exam ACR BI-RADS Category 1: Negative 3341F
== END ==
PROVIDERS: PCP Internal Medicine; Referring Provider Internal Medicine; Visit Provider Internal Medicine
DX: Z12.31 Encounter for screening mammogram for malignant neoplasm of breast (principal)
CPT/HCPCS: 77063; 77067

== ENCOUNTER → 2020-07-05 07:30 | Outpatient (CLI) | payer OTHER, SELFPAY ==
[2020-07-05 07:54] LABS: Hemoglobin A1C% w Est Avg Glu 5.7 % (4.0-6.0)
[2020-07-05 08:01] LABS: Alanine Aminotransferase 21 IU/L (<35); Albumin 3.9 g/dL (3.5-5.0); Albumin Globulin Ratio 1.6 (1.0-2.8); Alkaline Phosphatase 58 U/L (38-126); Aspartate Aminotransferase 25 IU/L (14-36); BUN Creatinine Ratio 18.4 (6-22); Bilirubin Total 0.3 mg/dL (0.2-1.3); Blood Urea Nitrogen 27 mg/dL (7-17); Calcium 9.8 mg/dL (8.4-10.2); Carbon Dioxide 26 mmol/L (22-32); Chloride 101 mmol/L (98-107); Cholesterol 142 mg/dL (140-199); Estimated Glomerular Filt Rate 34.7 mL/min (>60); Globulin 2.5 g/dL (1.7-4.1); Glucose 113 mg/dL (80-110); HDL Cholesterol 64 mg/dL (40-60); HEMOLYSIS < 15 (0-50); LDL Cholesterol Calculated 59 mg/dL (<100); Potassium 4.9 mmol/L (3.4-5.1); Sodium 131 mmol/L (137-145); Total Protein 6.4 g/dL (6.3-8.2); Triglycerides 93 mg/dL (35-150)
== END ==
PROVIDERS: PCP Internal Medicine; Referring Provider Internal Medicine; Visit Provider Internal Medicine
DX: E11.9 Type 2 diabetes mellitus without complications (principal); I10 Essential (primary) hypertension; N18.30 Chronic kidney disease, stage 3 unspecified
CPT/HCPCS: 36415; 80053; 80061; 83036

== ENCOUNTER → 2020-12-30 08:14 | Outpatient (CLI) | payer OTHER, SELFPAY ==
[2020-12-30 09:02] LABS: Hemoglobin A1C% w Est Avg Glu 5.6 % (4.0-6.0)
[2020-12-30 09:18] LABS: Alanine Aminotransferase 28 IU/L (<35); Albumin 3.8 g/dL (3.5-5.0); Albumin Globulin Ratio 1.4 (1.0-2.8); Alkaline Phosphatase 51 U/L (38-126); Aspartate Aminotransferase 33 IU/L (14-36); BUN Creatinine Ratio 15.4 (6-22); Bilirubin Total 0.4 mg/dL (0.2-1.3); Blood Urea Nitrogen 21 mg/dL (7-17); Calcium 10.4 mg/dL (8.4-10.2); Carbon Dioxide 26 mmol/L (22-32); Chloride 96 mmol/L (98-107); Globulin 2.7 g/dL (1.7-4.1); Glucose 78 mg/dL (80-110); HEMOLYSIS < 15 (0-50); Sodium 130 mmol/L (137-145); Total Protein 6.5 g/dL (6.3-8.2)
[2020-12-30 09:19] LABS: Potassium 4.6 mmol/L (3.4-5.1)
[2020-12-30 10:09] LABS: Creatinine Urine Random 189.5 mg/dL
[2020-12-30 10:15] LABS: Microalbumi Creatinin Ratio Ur 8.4 ug/mg CR (<30); Microalbumin Urine Random 1.6 mg/dL (0-1.6)
== END ==
PROVIDERS: PCP Internal Medicine; Referring Provider Internal Medicine; Visit Provider Internal Medicine
DX: E11.9 Type 2 diabetes mellitus without complications (principal); E78.2 Mixed hyperlipidemia; I10 Essential (primary) hypertension
CPT/HCPCS: 36415; 80053; 82043; 82570; 83036; 84443

== ENCOUNTER → 2021-06-02 11:37 | Outpatient (CLI) | payer MEDICARE, SELFPAY ==
[2021-06-02] MEDS: COVID-19 VACC #3, MRNA(MOD) 50 MCG/0.25 ML VIAL IM (11:45)
== END ==
PROVIDERS: PCP Internal Medicine; Visit Provider Internal Medicine
DX: Z23 Encounter for immunization (principal)
CPT/HCPCS: 0013A; 91301

== ENCOUNTER → 2021-07-03 08:14 | Outpatient (CLI) | payer OTHER, SELFPAY ==
[2021-07-03 10:26] LABS: Hemoglobin A1C% w Est Avg Glu 5.2 % (4.0-6.0)
[2021-07-03 10:40] LABS: Alanine Aminotransferase 16 IU/L (<35); Albumin 3.8 g/dL (3.5-5.0); Albumin Globulin Ratio 1.5 (1.0-2.8); Alkaline Phosphatase 44 U/L (38-126); Aspartate Aminotransferase 23 IU/L (14-36); BUN Creatinine Ratio 14.9 (6-22); Bilirubin Total 0.3 mg/dL (0.2-1.3); Blood Urea Nitrogen 23 mg/dL (7-17); Calcium 9.9 mg/dL (8.4-10.2); Carbon Dioxide 27 mmol/L (22-32); Chloride 102 mmol/L (98-107); Estimated Glomerular Filt Rate 32.8 mL/min (>60); Globulin 2.5 g/dL (1.7-4.1); Glucose 103 mg/dL (80-110); HEMOLYSIS < 15 (0-50); Potassium 4.9 mmol/L (3.4-5.1); Sodium 132 mmol/L (137-145); Total Protein 6.3 g/dL (6.3-8.2)
== END ==
PROVIDERS: PCP Internal Medicine; Referring Provider Internal Medicine; Visit Provider Internal Medicine
DX: E11.9 Type 2 diabetes mellitus without complications (principal); E78.2 Mixed hyperlipidemia; I10 Essential (primary) hypertension
CPT/HCPCS: 36415; 80053; 83036

== ENCOUNTER → 2022-01-19 07:19 | Outpatient (CLI) | payer OTHER, SELFPAY ==
[2022-01-19 08:04] LABS: Alanine Aminotransferase 16 IU/L (<35); Albumin 3.9 g/dL (3.5-5.0); Albumin Globulin Ratio 1.6 (1.0-2.8); Alkaline Phosphatase 50 U/L (38-126); Aspartate Aminotransferase 24 IU/L (14-36); BUN Creatinine Ratio 21.8 (6-22); Bilirubin Total 0.5 mg/dL (0.2-1.3); Blood Urea Nitrogen 31 mg/dL (7-17); Calcium 9.8 mg/dL (8.4-10.2); Carbon Dioxide 25 mmol/L (22-32); Chloride 101 mmol/L (98-107); Cholesterol 174 mg/dL (140-199); Estimated Glomerular Filt Rate 39 mL/min (>60); Globulin 2.5 g/dL (1.7-4.1); Glucose 102 mg/dL (80-110); HDL Cholesterol 58 mg/dL (40-60); HEMOLYSIS < 15 (0-50); LDL Cholesterol Calculated 99 mg/dL (<100); Potassium 4.8 mmol/L (3.4-5.1); Sodium 135 mmol/L (137-145); Total Protein 6.4 g/dL (6.3-8.2); Triglycerides 85 mg/dL (35-150)
[2022-01-19 08:08] LABS: Hemoglobin A1C% w Est Avg Glu 5.7 % (4.0-6.0)
== END ==
PROVIDERS: PCP Internal Medicine; Referring Provider Internal Medicine; Visit Provider Internal Medicine
DX: E11.9 Type 2 diabetes mellitus without complications (principal); E78.2 Mixed hyperlipidemia; I10 Essential (primary) hypertension
CPT/HCPCS: 36415; 80053; 80061; 83036

== ENCOUNTER → 2022-05-25 17:22 | Outpatient (CLI) | payer OTHER, SELFPAY ==
--- NOTE | 2022-05-25 17:23 | DI.MG.S_ITS ---
BILATERAL DIGITAL SCREENING MAMMOGRAM 3D/2D WITH CAD: 05/25/2022 CLINICAL: Routine screening. Comparison is made to exams dated: 06/20/2020 mammogram, 12/23/2017 mammogram, and 08/04/2015 mammogram - [facility]. There are scattered areas of fibroglandular density in both breasts (category b / 25%-50% glandular tissue). Current study was also evaluated with a Computer Aided Detection (CAD) system. No significant masses, calcifications, or other findings are seen in either breast. There has been no significant interval change. IMPRESSION: NEGATIVE There is no mammographic evidence of malignancy. A 1 year screening mammogram is recommended. Based on the Tyrer Cuzick model (a risk assessment model) the patient's lifetime risk is 2.7% and her 10 year risk is 0.0%. According to the ACR, ACS, and NCCN guidelines, an annual breast MRI exam along with mammogram is recommended if the patient's lifetime risk is 20% or greater. This exam was interpreted at Station ID: [id number]. NOTE: For mammograms, a report in lay terms will be sent to the patient. Approximately 15% of breast malignancies will not be visualized mammographically. In the management of a palpable breast mass, a negative mammogram must not discourage biopsy of a clinically suspicious lesion. Electronically Signed By: Kemar bullock/kadeem:05/28/2022 08:02:05 letter sent: Normal Exam ACR BI-RADS Category 1: Negative 3341F
== END ==
PROVIDERS: PCP Internal Medicine; Referring Provider Internal Medicine; Visit Provider Internal Medicine
DX: Z12.31 Encounter for screening mammogram for malignant neoplasm of breast (principal)
CPT/HCPCS: 77063; 77067

== ENCOUNTER → 2022-06-19 07:54 | Outpatient (CLI) | payer OTHER, SELFPAY ==
[2022-06-19 09:31] LABS: Hemoglobin A1C% w Est Avg Glu 6.1 % (4.0-6.0)
[2022-06-19 10:13] LABS: BUN Creatinine Ratio 13.7 (6-22); Blood Urea Nitrogen 24 mg/dL (7-17); Calcium 9.7 mg/dL (8.4-10.2); Carbon Dioxide 27 mmol/L (22-32); Chloride 99 mmol/L (98-107); Estimated Glomerular Filt Rate 30 mL/min (>60); Glucose 130 mg/dL (80-110); HEMOLYSIS < 15 (0-50); Potassium 4.5 mmol/L (3.4-5.1); Sodium 133 mmol/L (137-145)
== END ==
PROVIDERS: PCP Internal Medicine; Referring Provider Internal Medicine; Visit Provider Internal Medicine
DX: E11.9 Type 2 diabetes mellitus without complications (principal); N18.31 Chronic kidney disease, stage 3a
CPT/HCPCS: 36415; 80048; 83036

== ENCOUNTER → 2022-09-13 07:52 | Outpatient (CLI) | payer OTHER, SELFPAY ==
[2022-09-13 08:20] LABS: Hemoglobin A1C% w Est Avg Glu 6.2 % (4.0-6.0)
[2022-09-13 08:44] LABS: BUN Creatinine Ratio 16.3 (6-22); Blood Urea Nitrogen 23 mg/dL (7-17); Calcium 9.6 mg/dL (8.4-10.2); Carbon Dioxide 25 mmol/L (22-32); Chloride 101 mmol/L (98-107); Estimated Glomerular Filt Rate 39 mL/min (>60); Glucose 109 mg/dL (80-110); HEMOLYSIS < 15 (0-50); Potassium 4.3 mmol/L (3.4-5.1); Sodium 134 mmol/L (137-145)
== END ==
PROVIDERS: PCP Internal Medicine; Referring Provider Internal Medicine; Visit Provider Internal Medicine
DX: E11.9 Type 2 diabetes mellitus without complications (principal); I10 Essential (primary) hypertension; N18.31 Chronic kidney disease, stage 3a
CPT/HCPCS: 36415; 80048; 83036

== ENCOUNTER → 2023-01-28 10:16 | Outpatient (CLI) | payer OTHER, SELFPAY ==
[2023-01-28 11:40] LABS: Alanine Aminotransferase 20 IU/L (<35); Albumin Globulin Ratio 1.5 (1.0-2.8); Alkaline Phosphatase 52 U/L (38-126); Aspartate Aminotransferase 26 IU/L (14-36); BUN Creatinine Ratio 17.4 (6-22); Bilirubin Total 0.4 mg/dL (0.2-1.3); Blood Urea Nitrogen 40 mg/dL (7-17); Calcium 9.8 mg/dL (8.4-10.2); Carbon Dioxide 24 mmol/L (22-32); Chloride 100 mmol/L (98-107); Cholesterol 166 mg/dL (140-199); Estimated Glomerular Filt Rate 21 mL/min (>60); Globulin 2.7 g/dL (1.7-4.1); Glucose 103 mg/dL (80-110); HDL Cholesterol 65 mg/dL (40-60); HEMOLYSIS < 15 (0-50); LDL Cholesterol Calculated 84 mg/dL (<100); Potassium 4.4 mmol/L (3.4-5.1); Sodium 131 mmol/L (137-145); Total Protein 6.7 g/dL (6.3-8.2); Triglycerides 83 mg/dL (35-150)
[2023-01-29 07:09] LABS: Labcorp Hemoglobin (Hb) A1c 5.8 % (4.8-5.6)
== END ==
PROVIDERS: PCP Internal Medicine; Referring Provider Internal Medicine; Visit Provider Internal Medicine
DX: E11.9 Type 2 diabetes mellitus without complications (principal); I10 Essential (primary) hypertension; E78.2 Mixed hyperlipidemia
CPT/HCPCS: 36415; 80053; 80061; 83036

== ENCOUNTER → 2023-03-04 08:19 | Outpatient (CLI) | payer OTHER, SELFPAY ==
[2023-03-04 10:14] LABS: BUN Creatinine Ratio 19.7 (6-22); Blood Urea Nitrogen 42 mg/dL (7-17); Calcium 10.7 mg/dL (8.4-10.2); Carbon Dioxide 26 mmol/L (22-32); Chloride 99 mmol/L (98-107); Estimated Glomerular Filt Rate 24 mL/min (>60); Glucose 100 mg/dL (80-110); HEMOLYSIS < 15 (0-50); Potassium 4.2 mmol/L (3.4-5.1); Sodium 133 mmol/L (137-145)
== END ==
PROVIDERS: PCP Internal Medicine; Referring Provider Internal Medicine; Visit Provider Internal Medicine
DX: N18.30 Chronic kidney disease, stage 3 unspecified (principal)
CPT/HCPCS: 36415; 80048

== ENCOUNTER → 2023-07-30 07:53 | Outpatient (CLI) | payer OTHER, SELFPAY ==
[2023-07-30 08:30] LABS: Alanine Aminotransferase 17 IU/L (<35); Albumin 3.9 g/dL (3.5-5.0); Albumin Globulin Ratio 1.4 (1.0-2.8); Alkaline Phosphatase 64 U/L (38-126); Aspartate Aminotransferase 23 IU/L (14-36); BUN Creatinine Ratio 19.5 (6-22); Bilirubin Total 0.6 mg/dL (0.2-1.3); Blood Urea Nitrogen 41 mg/dL (7-17); Calcium 10.7 mg/dL (8.4-10.2); Carbon Dioxide 23 mmol/L (22-32); Chloride 103 mmol/L (98-107); Cholesterol 206 mg/dL (140-199); Estimated Glomerular Filt Rate 24 mL/min (>60); Globulin 2.7 g/dL (1.7-4.1); Glucose 134 mg/dL (80-110); HDL Cholesterol 68 mg/dL (40-60); HEMOLYSIS < 15 (0-50); LDL Cholesterol Calculated 115 mg/dL (<100); Potassium 4.2 mmol/L (3.4-5.1); Sodium 136 mmol/L (137-145); Total Protein 6.6 g/dL (6.3-8.2); Triglycerides 115 mg/dL (35-150)
[2023-07-30 08:36] LABS: Hemoglobin A1C% w Est Avg Glu 6.3 % (4.0-6.0)
== END ==
PROVIDERS: PCP Internal Medicine; Referring Provider Internal Medicine; Visit Provider Internal Medicine
DX: E11.9 Type 2 diabetes mellitus without complications (principal); I10 Essential (primary) hypertension; E78.2 Mixed hyperlipidemia
CPT/HCPCS: 36415; 80053; 80061; 83036

== ENCOUNTER → 2023-08-07 09:49 | Outpatient (CLI) | payer OTHER, SELFPAY ==
--- NOTE | 2023-08-07 09:51 | DI.MG.S_ITS ---
BILATERAL DIGITAL SCREENING MAMMOGRAM 3D/2D WITH CAD: 08/07/2023 CLINICAL: Routine screening. Comparison is made to exams dated: 05/25/2022 mammogram, 06/20/2020 mammogram, and 12/23/2017 mammogram - [facility]. Both breasts are almost entirely fatty (category a/<25% glandular tissue). Current study was also evaluated with a Computer Aided Detection (CAD) system. There are benign calcifications in the left breast. No significant masses, calcifications, or other findings are seen in either breast. There has been no significant interval change. IMPRESSION: BENIGN There is no mammographic evidence of malignancy. A 1 year screening mammogram is recommended. Based on the Tyrer Cuzick model (a risk assessment model) the patient's lifetime risk is 1.9% and her 10 year risk is 0.0%. According to the ACR, ACS, and NCCN guidelines, an annual breast MRI exam along with mammogram is recommended if the patient's lifetime risk is 20% or greater. This exam was interpreted at Station ID: [id number]. NOTE: For mammograms, a report in lay terms will be sent to the patient. Approximately 15% of breast malignancies will not be visualized mammographically. In the management of a palpable breast mass, a negative mammogram must not discourage biopsy of a clinically suspicious lesion. Electronically Signed By: Viktoriya sauer/kadeem:08/07/2023 16:27:02 letter sent: Normal Exam ACR BI-RADS Category 2: Benign Finding(s) 3342F
== END ==
LOC: MAMMO 09:50
PROVIDERS: PCP Internal Medicine; Referring Provider Internal Medicine; Visit Provider Internal Medicine
DX: Z12.31 Encounter for screening mammogram for malignant neoplasm of breast (principal)
CPT/HCPCS: 77063; 77067

== ENCOUNTER → 2024-01-07 10:21 | Outpatient (CLI) | payer OTHER, SELFPAY ==
[2024-01-07 11:46] LABS: Influenza A - CEPHEID Flu A NEGATIVE (NEGATIVE); Influenza B - CEPHEID Flu B NEGATIVE (NEGATIVE); Respiratory Syncytial Virus Negative (Negative)
[2024-01-07 13:23] LABS: COVID-19 CEPHEID 4-PLEX PCR POSITIVE (Negative)
== END ==
PROVIDERS: PCP Internal Medicine; Visit Provider Physician Assistant
DX: R05.9 Cough, unspecified (principal)
CPT/HCPCS: 0241U; 87070

== ENCOUNTER → 2024-01-07 11:01 | Outpatient (CLI) | payer OTHER, SELFPAY ==
--- NOTE | 2024-01-07 11:03 | DI.RAD.S_ITS ---
PROCEDURE: XR CHEST 2V INDICATIONS: cough with phlegm for ten days TECHNIQUE: 2 views of the chest were acquired. COMPARISON: None. FINDINGS: Surgical changes and devices: None. Lungs and pleura: Lungs are clear. No pleural effusions or pneumothorax. Mediastinum: Mediastinal contours are normal. Heart size is normal. Bones and chest wall: No suspicious bony abnormalities. Soft tissues appear unremarkable. IMPRESSION: No acute cardiopulmonary pathology. Dictated by: Guillermo Cruz M.D. on 01/07/2024 at 13:06 Approved by: Guillermo Cruz M.D. on 01/07/2024 at 13:06
== END ==
PROVIDERS: PCP Internal Medicine; Referring Provider Physician Assistant; Visit Provider Physician Assistant
DX: J06.9 Acute upper respiratory infection, unspecified (principal); R05.9 Cough, unspecified
CPT/HCPCS: 0241U; 71046; 87070

== ENCOUNTER → 2024-01-31 07:02 | Outpatient (CLI) | payer OTHER, SELFPAY ==
[2024-01-31 08:50] LABS: Alanine Aminotransferase 15 IU/L (<35); Albumin 3.5 g/dL (3.5-5.0); Albumin Globulin Ratio 1.4 (1.0-2.8); Alkaline Phosphatase 59 U/L (38-126); Aspartate Aminotransferase 22 IU/L (14-36); BUN Creatinine Ratio 19.5 (6-22); Bilirubin Total 0.5 mg/dL (0.2-1.3); Blood Urea Nitrogen 31 mg/dL (7-17); Calcium 10.1 mg/dL (8.4-10.2); Carbon Dioxide 26 mmol/L (22-32); Chloride 106 mmol/L (98-107); Cholesterol 221 mg/dL (140-199); Estimated Glomerular Filt Rate 33 mL/min (>60); Globulin 2.5 g/dL (1.7-4.1); Glucose 96 mg/dL (80-110); HDL Cholesterol 62 mg/dL (40-60); HEMOLYSIS < 15 (0-50); LDL Cholesterol Calculated 142 mg/dL (<100); Potassium 4.8 mmol/L (3.4-5.1); Sodium 136 mmol/L (137-145); Triglycerides 85 mg/dL (35-150)
[2024-01-31 10:02] LABS: Hemoglobin A1C% w Est Avg Glu 6.4 % (4.0-6.0)
== END ==
PROVIDERS: PCP Internal Medicine; Referring Provider Internal Medicine; Visit Provider Internal Medicine
DX: E11.9 Type 2 diabetes mellitus without complications (principal); I12.9 Hypertensive chronic kidney disease with stage 1 through stage 4 chronic kidney disease, or unspecified chronic kidney disease; N18.30 Chronic kidney disease, stage 3 unspecified; E78.2 Mixed hyperlipidemia
CPT/HCPCS: 36415; 80053; 80061; 83036

== ENCOUNTER → 2024-05-22 06:42 | Outpatient (CLI) | payer OTHER, SELFPAY ==
--- NOTE | 2024-05-22 06:43 | DI.US.S_ITS ---
PROCEDURE: US ABDOMEN LIMITED INDICATIONS: POSSIBLE RLQ HERNIA TECHNIQUE: Real-time focused scanning was performed of the abdomen, with image documentation. COMPARISON: None. Findings and impression: Fat containing hernia with neck measuring 2 cm. There is no change with Valsalva. The sac measures about 3.1 x 2.2 cm. Dictated by: Bill Matson M.D. on 05/22/2024 at 9:21 Approved by: Bill Matson M.D. on 05/22/2024 at 9:22
== END ==
PROVIDERS: PCP Internal Medicine; Referring Provider Physician Assistant; Visit Provider Physician Assistant
DX: K46.9 Unspecified abdominal hernia without obstruction or gangrene (principal); R10.9 Unspecified abdominal pain
CPT/HCPCS: 76705

== ENCOUNTER 2024-06-30 07:12 | Day surgery (SDC) | payer OTHER, SELFPAY ==
[2024-06-26 13:43] VITALS: BMI 27.8
[2024-06-30] VITALS (11 sets, daily range): BP systolic 110–134; BP diastolic 54–77; PULSE 54–82; RESP 14–20; TEMP 36.2–36.4; O2SAT 93–100; BMI 26.4
[2024-06-30] MEDS: LACTATED RINGERS 1,000 ML 42 ML IV (08:41)
[2024-06-30] MEDS: ACETAMINOPHEN 325 MG TABLET 975 MG PO (08:42)
--- NOTE | 2024-06-30 08:45 | PM.PREOP ---
Pre-operative Note COVID-19 COVID-19 status: Not tested Interval Note History & Physical reviewed/Exam performed by Physician: Yes Changes to H&P: No ASA Class (for procedural sedation): II
[2024-06-30] MEDS: CEFAZOLIN 2 GM/100 ML PREMIX 100 ML IV (09:24)
--- NOTE | 2024-06-30 09:37 | SUR.OPER ---
Supine on padded OR bed, head on pillow, arms padded and tucked at sides, legs uncrossed, safety belt at thigh, tape over blanket over lower legs .
[2024-06-30] MEDS: BUPIVACAINE 0.5% W/ EPI (PF) 30 ML VIAL INJ (10:28)
--- NOTE | 2024-06-30 10:30 | PM.OP.1 ---
Operative Date/Time/Diagnoses Date of procedure: 06/30/24 Time of procedure: 10:30 Pre-op diagnosis: Right inguinal hernia Post-op diagnosis: other (Right indirect inguinal hernia and right spigelian hernia) Procedure & Clinicians Procedure: Laparoscopic right inguinal and spigelian hernia repair with mesh Same procedure as scheduled: No Surgeon: Robinson De La Paz Polishing Machine Tender: Tom Collins Anesthesia Type: General Operative Notes Procedure in detail: The patient was given preoperative antibiotics. The patient was brought to the operating room, placed on the table in the supine position with the arms tucked and general anesthesia was induced. The abdomen was prepped and draped in the usual fashion. A time-out was performed. A 1 cm supraumbilical incision was created and dissection was carried down to the anterior sheath. The fascia was scored transversely with cautery. The inferior leaf of the fascia was grasped with a Mazin clamp to elevate abdominal wall and a Peon clamp was used to xiong the peritoneum. The Bonnie port was placed and the abdomen was insufflated to 15 mmHg. The camera was inserted, there was no evidence of any injury from the entry. There appeared to be a right spigelian hernia just medial and superior to the internal ring. There was also a right indirect hernia. 5 mm ports were placed under direct vision in the mid left and mid right abdomen. The patient was positioned in steep Trendelenburg. We inserted a large right Bard 3DMax mesh. It appeared that the mesh would cover both of the hernia defect. We created right peritoneal flap. The peritoneum was dissected free of the 2 hernias and off the round ligament. The mesh was placed over the defects with the medial edge against Osmel's ligament. We then closed the peritoneal flap with a running 3-0 barbed suture. We took one last look around the abdomen and saw no other abnormalities. The suture was removed and accounted for. The 5 mm ports were removed under direct vision. The abdomen was desufflated. The Bonnie port was removed. Additional local was injected into the fascia and the fascial incision was closed with 2 interrupted 0 Vicryl sutures. The skin incisions were closed with 4 Monocryl, Steri-Strips and Band-Aids. EBL: 10 mL Post-operative Condition: stable Disposition: PACU
[2024-06-30] MEDS: OXYCODONE IR 5 MG TABLET PO (10:58)
[2024-06-30] MEDS: ONDANSETRON 4 MG/2 ML INJ IV (11:03)
[2024-06-30] MEDS: HYDROMORPHONE 1 MG INJ IV (11:09)
== END 2024-06-30 12:42 | disposition home or self-care (01) ==
PROVIDERS: PCP Internal Medicine; Referring Provider Surgery; Visit Provider Surgery
PROC: 0YQ54ZZ Repair Right Inguinal Region, Percutaneous Endoscopic Approach (ICD-10-PCS; CPT 49650; principal; 2024-06-30 08:45)
DX: K40.90 Unilateral inguinal hernia, without obstruction or gangrene, not specified as recurrent (principal)
CPT/HCPCS: 49650; J0690; J1100; J1171; J2405; J2704; J3010

== ENCOUNTER 2024-07-08 00:46 | Inpatient (IN) | payer OTHER, SELFPAY ==
[2024-07-08] VITALS (40 sets, daily range): BP systolic 100–194; BP diastolic 45–130; PULSE 52–107; RESP 13–26; TEMP 36.6–37; O2SAT 89–100; BMI 25.9; BMI 27.8
--- NOTE | 2024-07-08 00:53 | EKG_ITS ---
[address] [address] Test Date: 2024-07-08 Pat Name: Marge Zaidi Department: [facility] Room: Gender: Female Energy Efficiency Specialist: : 1945 Requested By: Order Number: [id number] Reading MD: Fredo Sage Measurements Intervals [place] Rate: 81 P: 54 OR: 154 QRS: -38 QRSD: 126 T: 75 QT: 414 QTc: 480 Interpretive Statements Sinus rhythm with occasional premature ventricular complexes and premature atrial complexes Left axis deviation Right bundle branch block Septal infarct , age undetermined Lateral infarct , age undetermined Electronically Signed On 07-08-2024 7:55:10 PST by Fredo Sage
--- NOTE | 2024-07-08 00:53 | DI.RAD.S_ITS ---
PROCEDURE: XR CHEST 1V INDICATIONS: SEVERE UPPER ABD PAIN POD 8 HERNIA REPAIR TECHNIQUE: One view of the chest was acquired. COMPARISON: [facility], CR, XR CHEST 2V, 01/07/2024, 11:24. FINDINGS: Surgical changes and devices: None. Lungs and pleura: Lungs are clear. No pleural effusions or pneumothorax. Mediastinum: Mediastinal contours appear normal. Heart size is normal. Bones and chest wall: No suspicious bony lesions. Overlying soft tissues appear unremarkable. IMPRESSION: No acute cardiopulmonary abnormality is seen. Dictated by: Chris Morrell M.D. on 07/08/2024 at 1:12 Approved by: Chris Morrell M.D. on 07/08/2024 at 1:12
--- NOTE | 2024-07-08 00:55 | ED.ABDPAIN ---
HPI - Abdominal Pain <Joi Sharpe MD - Last Filed: 07/08/24 18:13> General Chief Complaint: Abdominal Pain Stated Complaint: hernia surgery last week now stomache pains Time Seen by Provider: 07/08/24 00:47 History of Present Illness HPI narrative: 79-year-old female with history of hypertension, [id number] diabetes, CKD stage 3 presents by private vehicle from home for upper abdominal pain and nausea. Patient is postop day 8 status post laparoscopic right inguinal hernia and right-sided spigelian hernia repair with Dr. De La Paz. Patient states that she had been recovering well at home until today. She ate a piece of pizza for lunch in around 4:00 p.m. started having significant midepigastric abdominal pain and nausea. She has tried to vomit but has not been successful. Related Data Home Medications Medication Instructions Recorded Confirmed blood sugar diagnostic (OneTouch #10 ea 05/14/24 07/13/24 Verio test strips) Previous Rx's Medication Instructions Recorded losartan 100 mg tablet 100 mg PO DAILY #90 tabs 09/25/23 simvastatin 40 mg tablet (Zocor) 40 mg PO HS #90 tabs 02/06/24 Allergies Allergy/AdvReac Type Severity Reaction Status Date / Time atorvastatin [ATORVASTATIN] Allergy Mild MUSCLE Verified 07/09/24 12:49 ACHE/LIPITOR rosuvastatin [From CRESTOR] Allergy Mild MUSCLE Verified 07/09/24 12:49 ACHE/ROSUVASTATIN lisinopril [LISINOPRIL] AdvReac Intermediate COUGH, Verified 07/09/24 12:49 HEADACHE Patient History <Joi Sharpe MD - Last Filed: 07/08/24 18:13> Medical History Lichen sclerosus et atrophicus of the vulva (09/13/15) Atrophic vaginitis (09/13/15) Bilateral low back pain without sciatica (04/26/15) Right bundle branch block (RBBB) (04/26/15) Essential hypertension Mixed hyperlipidemia Type 2 diabetes mellitus without complication Polymyositis (04/24/11) GERD (gastroesophageal reflux disease) Spinal stenosis Surgical History Status post laminectomy (05/2015) Social History marital status: number of children: 2 household members: spouse lives independently: Yes caregiver/support person: No housing: house pets and animals: Yes education level: college ([employer]) occupational status: other (Retired) 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 [employer] travel history: over 6 months ago ([place] every September.) leisure activities: exercise, reading and other (Local travel, boating.) Smoking Status: Former smoker Tobacco: How many years used: 30 Smokeless tobacco user: other (Cigarettes) quit status: quit date established (2000) second hand exposure: No alcohol intake: current substance use type: does not use Smoking Status: Former smoker Exam <Joi Sharpe MD - Last Filed: 07/08/24 18:13> Initial Vital Signs Initial Vital Signs: Vital Signs Pulse Rate 84 07/08/24 00:52 Pulse Oximetry 94 07/08/24 00:52 Const: Awake, alert, uncomfortable, in pain Cardiac: regular rate, regular rhythm RESP: unlabored, clear bilaterally, no wheezing GI: Soft, left lower quadrant and generalized upper quadrant tenderness to deep palpation without rebound or guarding Skin: Warm, Dry, intact, no rashes Neuro: AO x3, CN II-XII grossly intact, moves all extremities <Randy Cat MD - Last Filed: 07/17/24 12:50> Initial Vital Signs Initial Vital Signs: Vital Signs Pulse Rate 84 07/08/24 00:52 Pulse Oximetry 94 07/08/24 00:52 Course <Joi Sharpe MD - Last Filed: 07/08/24 18:13> Orders Ordered: Discontinued Medications Acetaminophen (Acetaminophen 325 Mg Tablet) 975 mg PO NOW PRN PRN Reason: Pain, Moderate (4-6) Acetaminophen (Acetaminophen 325 Mg Tablet) 975 mg PO NOW PRN PRN Reason: Pain, Moderate (4-6) Acetaminophen (Acetaminophen 325 Mg Tablet) 650 mg PO Q6H [facility] Last Admin: 07/10/24 12:13 Dose: Not Given Documented By: Admin: 07/10/24 08:30 Dose: 650 mg Documented By: Admin: 07/10/24 04:22 Dose: Not Given Documented By: Admin: 07/09/24 22:00 Dose: 650 mg Documented By: Admin: 07/09/24 16:37 Dose: Not Given Documented By: CYRUS Atorvastatin Calcium (Atorvastatin 20 Mg Tablet) 40 mg PO BEDTIME [facility] Last Admin: 07/09/24 21:00 Dose: 40 mg Documented By: Bisacodyl (Bisacodyl 10 Mg Supp) 10 mg [place] DAILY PRN PRN Reason: Constipation Bupivacaine HCl/Epinephrine Bitart (Bupivacaine 0.5% W/ Epi (Pf) 30 Ml Vial) 30 ml INJ NOW ONE Stop: 07/09/24 15:15 Last Admin: 07/09/24 15:14 Dose: 30 ml Documented By: JENIFER Celecoxib (Celecoxib 200 Mg Capsule) 200 mg PO BID [facility] Last Admin: 07/10/24 08:30 Dose: 200 mg Documented By: Admin: 07/09/24 21:00 Dose: 200 mg Documented By: Admin: 07/09/24 16:34 Dose: 200 mg Documented By: CYRUS Docusate Sodium (Docusate 100 Mg Capsule) 100 mg PO BID [facility] Last Admin: 07/09/24 16:41 Dose: Not Given Documented By: CYRUS Fentanyl (Fentanyl 100 Mcg/2 Ml Inj) 0 mcg IV Q5MIN PRN PRN Reason: Pain, Severe (7-10) Hydromorphone HCl (Hydromorphone 0.5 Mg Inj) 0.5 mg IV NOW ONE Stop: 07/08/24 05:19 Last Admin: 07/08/24 05:38 Dose: 0.5 mg Documented By: STANISLAW Hydromorphone HCl (Hydromorphone 0.5 Mg Inj) 0.5 mg IV Q2H PRN PRN Reason: Pain, Severe (7-10) Hydromorphone HCl (Hydromorphone 1 Mg Inj) 0 mg IV Q5MIN PRN PRN Reason: Pain, Mild (1-3) Hydroxyzine HCl (Hydroxyzine Hcl 25 Mg Tablet) 25 mg PO NOW PRN PRN Reason: Pain, Mild (1-3) Last Admin: 07/09/24 15:45 Dose: 25 mg Documented By: MARVIN Piperacillin Sod/Tazobactam (Sod 4.5 gm/ Sodium Chloride) 100 mls @ 200 mls/hr IV NOW ONE Stop: 07/08/24 05:01 Last Infusion: 07/08/24 08:44 Dose: Infused Documented By: Admin: 07/08/24 07:53 Dose: 200 mls/hr Documented By: SPF Sodium Chloride (Normal Saline 0.9%) 1,000 mls @ 100 mls/hr IV CONT [facility] Last Admin: 07/08/24 21:15 Dose: 100 mls/hr Documented By: Infusion: 07/08/24 21:13 Dose: Infused Documented By: Infusion: 07/08/24 12:02 Dose: 100 mls/hr Documented By: Admin: 07/08/24 11:12 Dose: 100 mls/hr Documented By: SPF Acetaminophen (Ofirmev) 1,000 mg in 100 mls @ 400 mls/hr IV Q6H PRN PRN Reason: Fever/Mild Pain (1-3) Last Admin: 07/09/24 15:15 Dose: 100 mls/hr Documented By: Infusion: 07/08/24 11:34 Dose: Infused Documented By: Infusion: 07/08/24 11:24 Dose: 0 mls/hr Documented By: Admin: 07/08/24 11:12 Dose: 400 mls/hr Documented By: SPF Piperacillin Sod/Tazobactam (Sod 3.375 gm/ Sodium Chloride) 100 mls @ 25 mls/hr IV Q8H [facility] Last Admin: 07/09/24 16:42 Dose: Not Given Documented By: Infusion: 07/09/24 11:30 Dose: Infused Documented By: Admin: 07/09/24 07:00 Dose: 25 mls/hr Documented By: Infusion: 07/09/24 04:50 Dose: Infused Documented By: Admin: 07/09/24 00:50 Dose: 25 mls/hr Documented By: Infusion: 07/08/24 20:39 Dose: Infused Documented By: Admin: 07/08/24 16:39 Dose: 25 mls/hr Documented By: SB Lactated Ringer's (Lactated Ringers) 1,000 mls @ 42 mls/hr IV CONT [facility] Last Admin: 07/08/24 17:41 Dose: Not Given Documented By: SB Lactated Ringer's (Lactated Ringers) 1,000 mls @ 42 mls/hr IV CONT [facility] Last Infusion: 07/09/24 15:54 Dose: Infused Documented By: Admin: 07/09/24 13:24 Dose: 42 mls/hr Documented By: JESSICA Dextrose (D10w) 100 mls @ 999 mls/hr IV PRN PRN PRN Reason: Hypoglycemia Dextrose (D10w) 100 mls @ 999 mls/hr IV PRN PRN PRN Reason: Hypoglycemia Insulin Human Lispro (Insulin Lispro 100 Unit/Ml 3ml Vial) 0 unit SUBCUT [facility]; Protocol Last Admin: 07/09/24 12:14 Dose: Not Given Documented By: CYRUS Insulin Human Lispro (Insulin Lispro 100 Unit/Ml 3ml Vial) 0 unit SUBCUT [facility]; Protocol Last Admin: 07/10/24 12:40 Dose: Not Given Documented By: Admin: 07/10/24 08:21 Dose: Not Given Documented By: Admin: 07/09/24 21:43 Dose: Not Given Documented By: Admin: 07/09/24 16:57 Dose: Not Given Documented By: CYRUS Iopamidol (Iopamidol 30 Ml Vial) 30 ml INJ NOW ONE Stop: 07/09/24 15:17 Last Admin: 07/09/24 15:16 Dose: 30 ml Documented By: JENIFER Lidocaine (Lidocaine 5% Patch) 1 each TOP DAILY [facility] Last Admin: 07/10/24 08:30 Dose: 1 each Documented By: IRINA Losartan Potassium (Losartan 50 Mg Tablet) 100 mg PO DAILY [facility] Last Admin: 07/10/24 08:29 Dose: 100 mg Documented By: IRINA Magnesium Chloride (Magnesium Chloride 64 Mg Tablet) 128 mg PO NOW ONE; Protocol Stop: 07/10/24 10:31 Last Admin: 07/10/24 12:16 Dose: 128 mg Documented By: IRINA Morphine Sulfate (Morphine 4 Mg/Ml Inj) 4 mg IV NOW ONE Stop: 07/08/24 00:54 Last Admin: 07/08/24 01:06 Dose: 4 mg Documented By: RAISA Naloxone HCl (Naloxone 0.4 Mg/Ml Vial) 0.2 mg IV Q2MIN PRN PRN Reason: Opiate Reversal Ondansetron HCl (Ondansetron 4 Mg/2 Ml Inj) 4 mg IV NOW ONE Stop: 07/08/24 00:54 Last Admin: 07/08/24 01:06 Dose: 4 mg Documented By: RAISA Ondansetron HCl (Ondansetron 4 Mg/2 Ml Inj) 4 mg IV Q8HR PRN PRN Reason: Nausea And Vomiting Ondansetron HCl (Ondansetron 4 Mg/2 Ml Inj) 4 mg IV NOW PRN PRN Reason: Nausea And Vomiting Last Admin: 07/09/24 15:44 Dose: 4 mg Documented By: LOWELLK Oxycodone HCl (Oxycodone Ir 5 Mg Tablet) 5 mg PO PACUNOW PRN PRN Reason: Mild or moderate pain Last Admin: 07/09/24 15:44 Dose: 5 mg Documented By: ADK Oxycodone HCl (Oxycodone Ir 5 Mg Tablet) 5 mg PO Q4HR PRN PRN Reason: Pain, Severe (7-10) Pantoprazole Sodium (Pantoprazole Dr 20 Mg Tablet) 20 mg PO 0600 [facility] Last Admin: 07/09/24 06:52 Dose: 20 mg Documented By: CT Tizanidine HCl (Tizanidine 4 Mg Tablet) 2 mg PO Q8HR PRN PRN Reason: pain or spasms Last Admin: 07/09/24 16:34 Dose: 2 mg Documented By: SB Vital Signs Vital signs: Vital Signs - 8 hr 07/08/24 02:30 07/08/24 02:30 07/08/24 03:00 Pulse Rate 63 63 Respiratory Rate 17 17 Blood Pressure 148/66 H Pulse Oximetry 99 100 Oxygen Delivery Method Nasal Cannula Oxygen Flow Rate 2 07/08/24 03:01 07/08/24 03:01 07/08/24 05:03 Pulse Rate 73 107 H Respiratory Rate 18 Blood Pressure 135/63 Pulse Oximetry 100 94 Oxygen Delivery Method Nasal Cannula Oxygen Flow Rate 2 07/08/24 05:05 07/08/24 05:05 07/08/24 05:30 Pulse Rate 74 62 Respiratory Rate Blood Pressure 140/62 Pulse Oximetry 98 97 Oxygen Delivery Method Room Air Oxygen Flow Rate 07/08/24 05:30 07/08/24 06:00 07/08/24 06:01 Pulse Rate 62 Respiratory Rate Blood Pressure 148/64 H 119/56 L Pulse Oximetry 92 Oxygen Delivery Method Oxygen Flow Rate 07/08/24 06:01 07/08/24 06:06 07/08/24 06:06 Pulse Rate 65 59 L Respiratory Rate Blood Pressure 125/59 L Pulse Oximetry 92 97 Oxygen Delivery Method Nasal Cannula Oxygen Flow Rate 2 07/08/24 07:22 07/08/24 07:24 07/08/24 07:24 Pulse Rate 63 66 Respiratory Rate Blood Pressure 117/78 Pulse Oximetry 94 Oxygen Delivery Method Room Air Oxygen Flow Rate 07/08/24 07:30 07/08/24 08:00 07/08/24 08:01 Pulse Rate 59 L 54 L Respiratory Rate 15 15 Blood Pressure 140/63 Pulse Oximetry 90 L 100 Oxygen Delivery Method Room Air Oxygen Flow Rate 07/08/24 08:01 07/08/24 08:30 07/08/24 08:31 Pulse Rate 54 L 54 L Respiratory Rate 16 18 Blood Pressure 122/60 Pulse Oximetry 99 97 Oxygen Delivery Method Room Air Oxygen Flow Rate 07/08/24 08:31 07/08/24 09:00 07/08/24 09:01 Pulse Rate 58 L 52 L 53 L Respiratory Rate 24 15 18 Blood Pressure Pulse Oximetry 95 99 99 Oxygen Delivery Method Nasal Cannula Oxygen Flow Rate 2 07/08/24 09:01 Pulse Rate Respiratory Rate Blood Pressure 122/59 L Pulse Oximetry Oxygen Delivery Method Oxygen Flow Rate <Randy Cat MD - Last Filed: 07/17/24 12:50> Orders Ordered: Discontinued Medications Acetaminophen (Acetaminophen 325 Mg Tablet) 975 mg PO NOW PRN PRN Reason: Pain, Moderate (4-6) Acetaminophen (Acetaminophen 325 Mg Tablet) 975 mg PO NOW PRN PRN Reason: Pain, Moderate (4-6) Acetaminophen (Acetaminophen 325 Mg Tablet) 650 mg PO Q6H [facility] Last Admin: 07/10/24 12:13 Dose: Not Given Documented By: Admin: 07/10/24 08:30 Dose: 650 mg Documented By: Admin: 07/10/24 04:22 Dose: Not Given Documented By: Admin: 07/09/24 22:00 Dose: 650 mg Documented By: Admin: 07/09/24 16:37 Dose: Not Given Documented By: CYRUS Atorvastatin Calcium (Atorvastatin 20 Mg Tablet) 40 mg PO BEDTIME [facility] Last Admin: 07/09/24 21:00 Dose: 40 mg Documented By: Bisacodyl (Bisacodyl 10 Mg Supp) 10 mg [place] DAILY PRN PRN Reason: Constipation Bupivacaine HCl/Epinephrine Bitart (Bupivacaine 0.5% W/ Epi (Pf) 30 Ml Vial) 30 ml INJ NOW ONE Stop: 07/09/24 15:15 Last Admin: 07/09/24 15:14 Dose: 30 ml Documented By: PH Celecoxib (Celecoxib 200 Mg Capsule) 200 mg PO BID [facility] Last Admin: 07/10/24 08:30 Dose: 200 mg Documented By: Admin: 07/09/24 21:00 Dose: 200 mg Documented By: Admin: 07/09/24 16:34 Dose: 200 mg Documented By: SB Docusate Sodium (Docusate 100 Mg Capsule) 100 mg PO BID [facility] Last Admin: 07/09/24 16:41 Dose: Not Given Documented By: SB Fentanyl (Fentanyl 100 Mcg/2 Ml Inj) 0 mcg IV Q5MIN PRN PRN Reason: Pain, Severe (7-10) Hydromorphone HCl (Hydromorphone 0.5 Mg Inj) 0.5 mg IV NOW ONE Stop: 07/08/24 05:19 Last Admin: 07/08/24 05:38 Dose: 0.5 mg Documented By: STANISLAW Hydromorphone HCl (Hydromorphone 0.5 Mg Inj) 0.5 mg IV Q2H PRN PRN Reason: Pain, Severe (7-10) Hydromorphone HCl (Hydromorphone 1 Mg Inj) 0 mg IV Q5MIN PRN PRN Reason: Pain, Mild (1-3) Hydroxyzine HCl (Hydroxyzine Hcl 25 Mg Tablet) 25 mg PO NOW PRN PRN Reason: Pain, Mild (1-3) Last Admin: 07/09/24 15:45 Dose: 25 mg Documented By: ADK Piperacillin Sod/Tazobactam (Sod 4.5 gm/ Sodium Chloride) 100 mls @ 200 mls/hr IV NOW ONE Stop: 07/08/24 05:01 Last Infusion: 07/08/24 08:44 Dose: Infused Documented By: Admin: 07/08/24 07:53 Dose: 200 mls/hr Documented By: SPF Sodium Chloride (Normal Saline 0.9%) 1,000 mls @ 100 mls/hr IV CONT [facility] Last Admin: 07/08/24 21:15 Dose: 100 mls/hr Documented By: Infusion: 07/08/24 21:13 Dose: Infused Documented By: Infusion: 07/08/24 12:02 Dose: 100 mls/hr Documented By: Admin: 07/08/24 11:12 Dose: 100 mls/hr Documented By: SPF Acetaminophen (Ofirmev) 1,000 mg in 100 mls @ 400 mls/hr IV Q6H PRN PRN Reason: Fever/Mild Pain (1-3) Last Admin: 07/09/24 15:15 Dose: 100 mls/hr Documented By: Infusion: 07/08/24 11:34 Dose: Infused Documented By: Infusion: 07/08/24 11:24 Dose: 0 mls/hr Documented By: Admin: 07/08/24 11:12 Dose: 400 mls/hr Documented By: SPF Piperacillin Sod/Tazobactam (Sod 3.375 gm/ Sodium Chloride) 100 mls @ 25 mls/hr IV Q8H [facility] Last Admin: 07/09/24 16:42 Dose: Not Given Documented By: Infusion: 07/09/24 11:30 Dose: Infused Documented By: Admin: 07/09/24 07:00 Dose: 25 mls/hr Documented By: Infusion: 07/09/24 04:50 Dose: Infused Documented By: Admin: 07/09/24 00:50 Dose: 25 mls/hr Documented By: Infusion: 07/08/24 20:39 Dose: Infused Documented By: Admin: 07/08/24 16:39 Dose: 25 mls/hr Documented By: SB Lactated Ringer's (Lactated Ringers) 1,000 mls @ 42 mls/hr IV CONT [facility] Last Admin: 07/08/24 17:41 Dose: Not Given Documented By: SB Lactated Ringer's (Lactated Ringers) 1,000 mls @ 42 mls/hr IV CONT [facility] Last Infusion: 07/09/24 15:54 Dose: Infused Documented By: Admin: 07/09/24 13:24 Dose: 42 mls/hr Documented By: CG Dextrose (D10w) 100 mls @ 999 mls/hr IV PRN PRN PRN Reason: Hypoglycemia Dextrose (D10w) 100 mls @ 999 mls/hr IV PRN PRN PRN Reason: Hypoglycemia Insulin Human Lispro (Insulin Lispro 100 Unit/Ml 3ml Vial) 0 unit SUBCUT [facility]; Protocol Last Admin: 07/09/24 12:14 Dose: Not Given Documented By: CYRUS Insulin Human Lispro (Insulin Lispro 100 Unit/Ml 3ml Vial) 0 unit SUBCUT [facility]; Protocol Last Admin: 07/10/24 12:40 Dose: Not Given Documented By: Admin: 07/10/24 08:21 Dose: Not Given Documented By: Admin: 07/09/24 21:43 Dose: Not Given Documented By: Admin: 07/09/24 16:57 Dose: Not Given Documented By: CYRUS Iopamidol (Iopamidol 30 Ml Vial) 30 ml INJ NOW ONE Stop: 07/09/24 15:17 Last Admin: 07/09/24 15:16 Dose: 30 ml Documented By: JENIFER Lidocaine (Lidocaine 5% Patch) 1 each TOP DAILY [facility] Last Admin: 07/10/24 08:30 Dose: 1 each Documented By: IRINA Losartan Potassium (Losartan 50 Mg Tablet) 100 mg PO DAILY [facility] Last Admin: 07/10/24 08:29 Dose: 100 mg Documented By: IRINA Magnesium Chloride (Magnesium Chloride 64 Mg Tablet) 128 mg PO NOW ONE; Protocol Stop: 07/10/24 10:31 Last Admin: 07/10/24 12:16 Dose: 128 mg Documented By: IRINA Morphine Sulfate (Morphine 4 Mg/Ml Inj) 4 mg IV NOW ONE Stop: 07/08/24 00:54 Last Admin: 07/08/24 01:06 Dose: 4 mg Documented By: RAISA Naloxone HCl (Naloxone 0.4 Mg/Ml Vial) 0.2 mg IV Q2MIN PRN PRN Reason: Opiate Reversal Ondansetron HCl (Ondansetron 4 Mg/2 Ml Inj) 4 mg IV NOW ONE Stop: 07/08/24 00:54 Last Admin: 07/08/24 01:06 Dose: 4 mg Documented By: RAISA Ondansetron HCl (Ondansetron 4 Mg/2 Ml Inj) 4 mg IV Q8HR PRN PRN Reason: Nausea And Vomiting Ondansetron HCl (Ondansetron 4 Mg/2 Ml Inj) 4 mg IV NOW PRN PRN Reason: Nausea And Vomiting Last Admin: 07/09/24 15:44 Dose: 4 mg Documented By: MARVIN Oxycodone HCl (Oxycodone Ir 5 Mg Tablet) 5 mg PO PACUNOW PRN PRN Reason: Mild or moderate pain Last Admin: 07/09/24 15:44 Dose: 5 mg Documented By: ADK Oxycodone HCl (Oxycodone Ir 5 Mg Tablet) 5 mg PO Q4HR PRN PRN Reason: Pain, Severe (7-10) Pantoprazole Sodium (Pantoprazole Dr 20 Mg Tablet) 20 mg PO 0600 [facility] Last Admin: 07/09/24 06:52 Dose: 20 mg Documented By: CT Tizanidine HCl (Tizanidine 4 Mg Tablet) 2 mg PO Q8HR PRN PRN Reason: pain or spasms Last Admin: 07/09/24 16:34 Dose: 2 mg Documented By: SB Vital Signs Vital signs: Vital Signs - 8 hr 07/08/24 02:30 07/08/24 02:30 07/08/24 03:00 Pulse Rate 63 63 Respiratory Rate 17 17 Blood Pressure 148/66 H Pulse Oximetry 99 100 Oxygen Delivery Method Nasal Cannula Oxygen Flow Rate 2 07/08/24 03:01 07/08/24 03:01 07/08/24 05:03 Pulse Rate 73 107 H Respiratory Rate 18 Blood Pressure 135/63 Pulse Oximetry 100 94 Oxygen Delivery Method Nasal Cannula Oxygen Flow Rate 2 07/08/24 05:05 07/08/24 05:05 07/08/24 05:30 Pulse Rate 74 62 Respiratory Rate Blood Pressure 140/62 Pulse Oximetry 98 97 Oxygen Delivery Method Room Air Oxygen Flow Rate 07/08/24 05:30 07/08/24 06:00 07/08/24 06:01 Pulse Rate 62 Respiratory Rate Blood Pressure 148/64 H 119/56 L Pulse Oximetry 92 Oxygen Delivery Method Oxygen Flow Rate 07/08/24 06:01 07/08/24 06:06 07/08/24 06:06 Pulse Rate 65 59 L Respiratory Rate Blood Pressure 125/59 L Pulse Oximetry 92 97 Oxygen Delivery Method Nasal Cannula Oxygen Flow Rate 2 07/08/24 07:22 07/08/24 07:24 07/08/24 07:24 Pulse Rate 63 66 Respiratory Rate Blood Pressure 117/78 Pulse Oximetry 94 Oxygen Delivery Method Room Air Oxygen Flow Rate 07/08/24 07:30 07/08/24 08:00 07/08/24 08:01 Pulse Rate 59 L 54 L Respiratory Rate 15 15 Blood Pressure 140/63 Pulse Oximetry 90 L 100 Oxygen Delivery Method Room Air Oxygen Flow Rate 07/08/24 08:01 07/08/24 08:30 07/08/24 08:31 Pulse Rate 54 L 54 L Respiratory Rate 16 18 Blood Pressure 122/60 Pulse Oximetry 99 97 Oxygen Delivery Method Room Air Oxygen Flow Rate 07/08/24 08:31 07/08/24 09:00 07/08/24 09:01 Pulse Rate 58 L 52 L 53 L Respiratory Rate 24 15 18 Blood Pressure Pulse Oximetry 95 99 99 Oxygen Delivery Method Nasal Cannula Oxygen Flow Rate 2 07/08/24 09:01 Pulse Rate Respiratory Rate Blood Pressure 122/59 L Pulse Oximetry Oxygen Delivery Method Oxygen Flow Rate MDM - Abdominal Pain <Joi Sharpe MD - Last Filed: 07/08/24 18:13> Differential Diagnosis Differential diagnosis: Likely abdominal pain, pancreatitis and small bowel obstruction Lab Data 07/10/24 04:46 07/10/24 04:46 Labs: Lab Results 07/08/24 07/08/24 07/08/24 Range/Units 00:58 03:04 05:57 WBC 8.4 (4.5-11.0) X10^3/uL RBC 3.40 L (4.0-5.2) X10^6/uL Hgb 10.4 L (12.0-16.0) g/dL Hct 30.8 L (36-46) % MCV 90.8 (80-100) fL MCH 30.5 (26-34) PG MCHC 33.6 (30-36) % RDW 13.8 (11.6-14.8) % Plt Count 266 (150-400) X10^3/uL Neut % (Auto) 72.6 (50-75) % Lymph % (Auto) 15.4 L (25-40) % Will % (Auto) 8.1 (3-14) % Eos % (Auto) 3.3 (2-4) % Baso % (Auto) 0.6 (0-2) % Neut # (Auto) 6100 (8829-5762) /uL Lymph # (Auto) 1300 (0918-0074) /uL Will # (Auto) 700 (0-900) /uL Eos # (Auto) 300 (0-450) /uL Baso # (Auto) 0 (0-100) /uL Sodium 139 (137-145) mmol/L Potassium 3.9 (3.4-5.1) mmol/L Chloride 106 (98-107) mmol/L Carbon Dioxide 26 (22-32) mmol/L BUN 35 H (7-17) mg/dL Creatinine 1.55 H (0.52-1.04) mg/dL Estimated GFR 34 L (>60) mL/min BUN/Creatinine Ratio 22.6 H (6-22) Glucose 251 H (80-110) mg/dL Lactate 1.8 1.0 (0.7-2.1) mmol/L Calcium 10.2 (8.4-10.2) mg/dL Total Bilirubin 0.9 (0.2-1.3) mg/dL AST 235 H (14-36) IU/L ALT 117 H (<35) IU/L Alkaline Phosphatase 140 H (38-126) U/L Total Creatine Kinase 81 (30-135) U/L Troponin I 0.204 H* 0.258 H* (0.01-0.034) ng/mL Total Protein 6.4 (6.3-8.2) g/dL Albumin 3.9 (3.5-5.0) g/dL Globulin 2.5 (1.7-4.1) g/dL Albumin/Globulin Ratio 1.6 (1.0-2.8) Lipase 44413 H 98321 H (23-300) U/L MDM Narrative Medical decision making narrative: Severe midepigastric abdominal pain and R shoulder pain with nausea postop day 8 from laparoscopic hernia repair. Abdomen is soft but she was tender in the midepigastric and left quadrants of the abdomen. Unfortunately we do not have an active CT scanner at this time. Patient will need to be transferred to [facility] for imaging. Laboratory work, pain medications ordered. adjustment clerk arranging for transport to [facility] ED for scan. Received call from lab with critical troponin 0.208. EKG shows t wave inversions in V2, aVL, no ST-elevations. Recent surgery and still pending transport to [facility] for imaging. Call placed to cardiology to see if heparin should be initiated SARAH. Spoke with Dr. Leary, who stated heparin should not be administered until CT scan obtained. Ambulance service not able to pick patient up until 0400 We were able to obtain faster ambulance transport, with [facility] service picking up at 3:00 a.m.. 0330 -repeat troponin 0.258. Patient was currently at [facility] obtaining CT scan. 0500 - Patient has returned from [facility]. Preliminary report of CT abdomen/pelvis with contrast shows mild intrahepatic and extrahepatic biliary duct dilation. Thickening of the duodenal wall and prominent ampulla. Obstructing neoplasm not excluded. Cholelithiasis with mild gallbladder thickening also seen. There are trace perihepatic ascites. Radiology recommends MRCP. MRI will not be available until 630. Patient informed of CT results and recommendations for MRCP. She has good pain control after 1st dose of medications and is willing to stay for MRCP. Blood cultures, empiric antibiotics, repeat lactic and lipase ordered for assessment. In light of severely elevated lipase, possible obstructing neoplasm and severe pain I have less suspicion that patient's troponin is due to acute ischemic process. Discussed case with Dr. Leary again, who stated that this elevation in troponin is likely secondary to pancreatitis and recommends against anticoagulation at this time. 0620 - Patient to MRI at this time. Still in MR as of 0700. Care of patient signed to Dr. Cat at this time. July 08, 2024 at 7:[address] Cat: Sign out from Dr. Sharpe. Patient possibly needs transfer for higher level care/GI services. MRCP is pending results. Zosyn has been started. Pain is controlled. Cardiology service was contacted. No heparin or pathway for non-STEMI. Troponin likely reflection of pancreatitis. 7:[address] Cat: Spoke with patient. Pain is controlled at this time. She understands she may need to be transferred for higher level of care/GI services/ERCP. MRCP has been completed and pending results After history and exam, pain control CBC CMP lipase CT abdomen pelvis MDM Medical records reviewed: No recent visit for this complaint Differential considered: Includes but not limited to cholecystitis cholelithiasis pancreatitis Lab Test results independently reviewed as above. Pertinent findings: Lipase 48,000, elevated troponin Imaging studies independently reviewed: CT abdomen pelvis mild intrahepatic extrahepatic biliary ductal dilatation. Thickening of the duodenal wall and prominent ampulla. Obstructing neoplasm possible, MRCP recommended. Cholelithiasis. Mild gallbladder wall thickening. Possible cholecystitis. MRCP cholelithiasis seen. Pancreatitis seen. Consultations: 8:[address] Robbins, general surgeon, MRCP is pending results. He will see patient in consult. 9:54 a.m.. Surgeon has seen patient. Plans for surgery hopefully today. Gallstone pancreatitis. He has reviewed the MRCP. Would like primary care to admit patient 10:29 a.m. spoke with primary care on-call, Dr. Hair, who will admit for Dr. Salmon Treatments: Morphine Zofran Zosyn Dilaudid Re-evaluations: 10:00 a.m.. Patient agrees for admission and for surgical intervention. Discussion: Appropriate for admission for gallstone pancreatitis. MRCP reviewed by general surgeon. Diagnosis: Gallstone pancreatitis <Randy Cat MD - Last Filed: 07/17/24 12:50> Lab Data Labs: Lab Results 07/08/24 07/08/24 07/08/24 Range/Units 00:58 03:04 05:57 WBC 8.4 (4.5-11.0) X10^3/uL RBC 3.40 L (4.0-5.2) X10^6/uL Hgb 10.4 L (12.0-16.0) g/dL Hct 30.8 L (36-46) % MCV 90.8 (80-100) fL MCH 30.5 (26-34) PG MCHC 33.6 (30-36) % RDW 13.8 (11.6-14.8) % Plt Count 266 (150-400) X10^3/uL Neut % (Auto) 72.6 (50-75) % Lymph % (Auto) 15.4 L (25-40) % Will % (Auto) 8.1 (3-14) % Eos % (Auto) 3.3 (2-4) % Baso % (Auto) 0.6 (0-2) % Neut # (Auto) 6100 (7340-7454) /uL Lymph # (Auto) 1300 (0422-0080) /uL Will # (Auto) 700 (0-900) /uL Eos # (Auto) 300 (0-450) /uL Baso # (Auto) 0 (0-100) /uL Sodium 139 (137-145) mmol/L Potassium 3.9 (3.4-5.1) mmol/L Chloride 106 (98-107) mmol/L Carbon Dioxide 26 (22-32) mmol/L BUN 35 H (7-17) mg/dL Creatinine 1.55 H (0.52-1.04) mg/dL Estimated GFR 34 L (>60) mL/min BUN/Creatinine Ratio 22.6 H (6-22) Glucose 251 H (80-110) mg/dL Lactate 1.8 1.0 (0.7-2.1) mmol/L Calcium 10.2 (8.4-10.2) mg/dL Total Bilirubin 0.9 (0.2-1.3) mg/dL AST 235 H (14-36) IU/L ALT 117 H (<35) IU/L Alkaline Phosphatase 140 H (38-126) U/L Total Creatine Kinase 81 (30-135) U/L Troponin I 0.204 H* 0.258 H* (0.01-0.034) ng/mL Total Protein 6.4 (6.3-8.2) g/dL Albumin 3.9 (3.5-5.0) g/dL Globulin 2.5 (1.7-4.1) g/dL Albumin/Globulin Ratio 1.6 (1.0-2.8) Lipase 20026 H 00548 H (23-300) U/L Imaging Data MRCP: Radiologist's Impression: [place] [address] Magnetic Resonance Report Signed Patient: Marge Zaidi MR#: [id number] : 1945 Acct:[id number] Age/Sex: 79 / F Date of Service: 07/08/24 Loc: ED Accession Number: [id number] Procedure: MR abdomen wo/w con Ordering Provider: Joi Sharpe MD PROCEDURE: MR ABDOMEN WO/W CON INDICATIONS: PANCREATIC DUCT DILATION/OBSTRUCTING NEOPLASM? TECHNIQUE: Coronal HASTE, axial 2D FLASH in- and [id number]; axial breath-hold T2 FSE with fat saturation from the hepatic dome to the iliac crests. Oblique coronal thin-slice and radial thick slab HASTE through the biliary system. Dynamic axial VIBE during administration of contrast. Post-contrast coronal VIBE or 2D FLASH with fat saturation from the hepatic dome to the iliac crests. Optional diffusion weighted imaging and ADC may be performed. COMPARISON: [facility], CT, CT ABDOMEN PELVIS WITH CONTRAST, 07/08/2024, 4:16. FINDINGS: Image quality: Motion degraded Lower chest: No basal effusions Liver: There are probable small liver cysts. No suspicious enhancing lesion Gallbladder and biliary system: Cholelithiasis. CBD is at the upper limit of normal measuring 5-6 millimeters. There is a questionable tiny filling defect at the distal aspect (7/25). Pancreas: Uymq-lm-fknmuqav pancreatic edema and surrounding edematous fat stranding. No ductal dilation. Spleen: Nonenlarged Adrenals: No discrete nodules Kidneys: No solid mass. No hydronephrosis. Vessels and lymph nodes: No pathologic lymph nodes by size criteria. No abdominal aortic aneurysm. Main portal vein appears patent Bowel and peritoneum: No evidence of small bowel obstruction. Small amount of ascites is seen. Body wall: Unremarkable Bones: No suspicious osseous enhancement. Degenerative changes are seen. IMPRESSION: Acute interstitial pancreatitis without necrotic component or drainable fluid collection. Cholelithiasis. CBD measures 5-6 millimeters, upper limit of normal. There is a questionable filling defect which may represent a tiny stone or sludge distally (see image 7/25). No pancreatic ductal dilation or obstructing mass is seen Other findings above. Motion degraded MRI Dictated by: Bill Matson M.D. on 07/08/2024 at 9:06 Approved by: Bill Matson M.D. on 07/08/2024 at 9:15 Chest x-ray: Radiologist's Impression: [address] [address] XRay Report Signed Patient: Marge Zaidi MR#: [id number] : 1945 Acct:[id number] Age/Sex: 79 / F Date of Service: 07/08/24 Loc: ED Accession Number: [id number] Procedure: XR chest 1V Ordering Provider: Joi Sharpe MD PROCEDURE: XR CHEST 1V INDICATIONS: SEVERE UPPER ABD PAIN POD 8 HERNIA REPAIR TECHNIQUE: One view of the chest was acquired. COMPARISON: [facility], CR, XR CHEST 2V, 01/07/2024, 11:24. FINDINGS: Surgical changes and devices: None. Lungs and pleura: Lungs are clear. No pleural effusions or pneumothorax. Mediastinum: Mediastinal contours appear normal. Heart size is normal. Bones and chest wall: No suspicious bony lesions. Overlying soft tissues appear unremarkable. IMPRESSION: No acute cardiopulmonary abnormality is seen. Dictated by: Chris Morrell M.D. on 07/08/2024 at 1:12 Approved by: Chris Morrell M.D. on 07/08/2024 at 1:12 MDM Narrative Medical decision making narrative: Severe midepigastric abdominal pain and R shoulder pain with nausea postop day 8 from laparoscopic hernia repair. Abdomen is soft but she was tender in the midepigastric and left quadrants of the abdomen. Unfortunately we do not have an active CT scanner at this time. Patient will need to be transferred to [facility] for imaging. Laboratory work, pain medications ordered. adjustment clerk arranging for transport to [facility] ED for scan. Received call from lab with critical troponin 0.208. EKG shows t wave inversions in V2, aVL, no ST-elevations. Recent surgery and still pending transport to [facility] for imaging. Call placed to cardiology to see if heparin should be initiated SARAH. Spoke with Dr. Leary, who stated heparin should not be administered until CT scan obtained. Ambulance service not able to pick patient up until 0400 We were able to obtain faster ambulance transport, with [facility] service picking up at 3:00 a.m.. 0330 -repeat troponin 0.258. Patient was currently at [facility] obtaining CT scan. 0500 - Patient has returned from [facility]. Preliminary report of CT abdomen/pelvis with contrast shows mild intrahepatic and extrahepatic biliary duct dilation. Thickening of the duodenal wall and prominent ampulla. Obstructing neoplasm not excluded. Cholelithiasis with mild gallbladder thickening also seen. There are trace perihepatic ascites. Radiology recommends MRCP. MRI will not be available until 630. Patient informed of CT results and recommendations for MRCP. She has good pain control after 1st dose of medications and is willing to stay for MRCP. Blood cultures, empiric antibiotics, repeat lactic and lipase ordered for assessment. In light of severely elevated lipase, possible obstructing neoplasm and severe pain I have less suspicion that patient's troponin is due to acute ischemic process. Discussed case with Dr. Leary again, who stated that this elevation in troponin is likely secondary to pancreatitis and recommends against anticoagulation at this time. July 08, 2024 at 7:[address] Cat: Sign out from Dr. Sharpe. Patient possibly needs transfer for higher level care/GI services. MRCP is pending results. Zosyn has been started. Pain is controlled. Cardiology service was contacted. No heparin or pathway for non-STEMI. Troponin likely reflection of pancreatitis. 7:[address] Cat: Spoke with patient. Pain is controlled at this time. She understands she may need to be transferred for higher level of care/GI services/ERCP. MRCP has been completed and pending results After history and exam, pain control CBC CMP lipase CT abdomen pelvis MDM Medical records reviewed: No recent visit for this complaint Differential considered: Includes but not limited to cholecystitis cholelithiasis pancreatitis Lab Test results independently reviewed as above. Pertinent findings: Lipase 48,000, elevated troponin Imaging studies independently reviewed: CT abdomen pelvis mild intrahepatic extrahepatic biliary ductal dilatation. Thickening of the duodenal wall and prominent ampulla. Obstructing neoplasm possible, MRCP recommended. Cholelithiasis. Mild gallbladder wall thickening. Possible cholecystitis. MRCP cholelithiasis seen. Pancreatitis seen. Consultations: 8:[address] Robbins, general surgeon, MRCP is pending results. He will see patient in consult. 9:54 a.m.. Surgeon has seen patient. Plans for surgery hopefully today. Gallstone pancreatitis. He has reviewed the MRCP. Would like primary care to admit patient 10:29 a.m. spoke with primary care on-call, Dr. Hair, who will admit for Dr. Salmon Treatments: Morphine Zofran Zosyn Dilaudid Re-evaluations: 10:00 a.m.. Patient agrees for admission and for surgical intervention. Discussion: Appropriate for admission for gallstone pancreatitis. MRCP reviewed by general surgeon. Diagnosis: Gallstone pancreatitis Discharge Plan Departure Patient Disposition: Admitted As Inpatient Clinical Impression: Acute gallstone pancreatitis Admit Date/Time: 07/08/24 10:29 Admit Provider: Juan Miguel Hair
[2024-07-08] MEDS: MORPHINE 4 MG/ML INJ IV (01:06)
[2024-07-08] MEDS: ONDANSETRON 4 MG/2 ML INJ IV (01:06)
[2024-07-08 01:13] LABS: Add Manual Diff / Slide Review NO; Basophils Absolute Auto 0 /uL (0-100); Basophils Percent Auto 0.6 % (0-2); Eosinophils Absolute Auto 300 /uL (0-450); Eosinophils Percent Auto 3.3 % (2-4); Hematocrit 30.8 % (36-46); Hemoglobin 10.4 g/dL (12.0-16.0); Lymphocytes Absolute Auto 1300 /uL (1100-4500); Lymphocytes Percent Auto 15.4 % (25-40); Mean Corpuscular HGB Conc 33.6 % (30-36); Mean Corpuscular Hemoglobin 30.5 PG (26-34); Mean Corpuscular Volume 90.8 fL (80-100); Monocytes Absolute Auto 700 /uL (0-900); Monocytes Percent Auto 8.1 % (3-14); Neutrophils Absolute Auto 6100 /uL (1500-7000); Neutrophils Percent Auto 72.6 % (50-75); Platelet Count 266 X10^3/uL (150-400); Red Cell Distribution Width 13.8 % (11.6-14.8); White Blood Cell Count 8.4 X10^3/uL (4.5-11.0)
[2024-07-08 01:24] LABS: Alanine Aminotransferase 117 IU/L (<35); Albumin 3.9 g/dL (3.5-5.0); Albumin Globulin Ratio 1.6 (1.0-2.8); Alkaline Phosphatase 140 U/L (38-126); Aspartate Aminotransferase 235 IU/L (14-36); BUN Creatinine Ratio 22.6 (6-22); Bilirubin Total 0.9 mg/dL (0.2-1.3); Blood Urea Nitrogen 35 mg/dL (7-17); Calcium 10.2 mg/dL (8.4-10.2); Carbon Dioxide 26 mmol/L (22-32); Chloride 106 mmol/L (98-107); Creatine Kinase 81 U/L (30-135); Estimated Glomerular Filt Rate 34 mL/min (>60); Globulin 2.5 g/dL (1.7-4.1); Glucose 251 mg/dL (80-110); HEMOLYSIS < 15 (0-50); Potassium 3.9 mmol/L (3.4-5.1); Sodium 139 mmol/L (137-145); Total Protein 6.4 g/dL (6.3-8.2)
[2024-07-08 01:25] LABS: Lactate (Lactic Acid) 1.8 mmol/L (0.7-2.1)
[2024-07-08 01:37] LABS: Troponin I 0.204 ng/mL (0.01-0.034)
--- NOTE | 2024-07-08 01:38 | EKG_ITS ---
[address] [address] Test Date: 2024-07-08 Pat Name: Marge Zaidi Department: Room: Gender: Female Test Pilot: : 1945 Requested By: Order Number: [id number] Reading MD: Fredo Sage Measurements Intervals [place] Rate: 71 P: 54 [place]: 162 QRS: -30 QRSD: 130 T: 87 QT: 412 QTc: 447 Interpretive Statements Normal sinus rhythm Left axis deviation Right bundle branch block Septal infarct , age undetermined Possible Lateral infarct , age undetermined Electronically Signed On 07-08-2024 7:55:17 PST by Fredo Sage
[2024-07-08 02:34] LABS: Lipase 48850 U/L (23-300)
--- NOTE | 2024-07-08 03:06 | PC.NURSE ---
Repeat troponin drawn from existing IV line. Pt then taken by [facility] to [facility] for CT at this time.
[2024-07-08 03:47] LABS: Troponin I 0.258 ng/mL (0.01-0.034)
[2024-07-08] MEDS: HYDROMORPHONE 0.5 MG INJ IV (05:38)
--- NOTE | 2024-07-08 06:02 | PC.NURSE ---
Per Dr Sharpe, give zosyn after pt returns from MRI
--- NOTE | 2024-07-08 06:06 | PC.NURSE ---
RN attempted blood culture draw x 1. Printing Manager was only able to draw 1 set BC. Will reattempt after MRI.
--- NOTE | 2024-07-08 06:44 | DI.MRI.S_ITS ---
PROCEDURE: MR ABDOMEN WO/W CON INDICATIONS: PANCREATIC DUCT DILATION/OBSTRUCTING NEOPLASM? TECHNIQUE: Coronal HASTE, axial 2D FLASH in- and [id number]; axial breath-hold T2 FSE with fat saturation from the hepatic dome to the iliac crests. Oblique coronal thin-slice and radial thick slab HASTE through the biliary system. Dynamic axial VIBE during administration of contrast. Post-contrast coronal VIBE or 2D FLASH with fat saturation from the hepatic dome to the iliac crests. Optional diffusion weighted imaging and ADC may be performed. COMPARISON: [facility], CT, CT ABDOMEN PELVIS WITH CONTRAST, 07/08/2024, 4:16. FINDINGS: Image quality: Motion degraded Lower chest: No basal effusions Liver: There are probable small liver cysts. No suspicious enhancing lesion Gallbladder and biliary system: Cholelithiasis. CBD is at the upper limit of normal measuring 5-6 millimeters. There is a questionable tiny filling defect at the distal aspect (7/25). Pancreas: Sjee-rn-mcnzresg pancreatic edema and surrounding edematous fat stranding. No ductal dilation. Spleen: Nonenlarged Adrenals: No discrete nodules Kidneys: No solid mass. No hydronephrosis. Vessels and lymph nodes: No pathologic lymph nodes by size criteria. No abdominal aortic aneurysm. Main portal vein appears patent Bowel and peritoneum: No evidence of small bowel obstruction. Small amount of ascites is seen. Body wall: Unremarkable Bones: No suspicious osseous enhancement. Degenerative changes are seen. IMPRESSION: Acute interstitial pancreatitis without necrotic component or drainable fluid collection. Cholelithiasis. CBD measures 5-6 millimeters, upper limit of normal. There is a questionable filling defect which may represent a tiny stone or sludge distally (see image 7/25). No pancreatic ductal dilation or obstructing mass is seen Other findings above. Motion degraded MRI Dictated by: Bill Matson M.D. on 07/08/2024 at 9:06 Approved by: Bill Matson M.D. on 07/08/2024 at 9:15
[2024-07-08 07:14] LABS: Lipase 25950 U/L (23-300)
--- NOTE | 2024-07-08 07:40 | PC.NURSE ---
2nd set of cultures obtained at 0740. Antibiotics started after 2nd set.
[2024-07-08] MEDS: PIPERACILLIN/TAZO 4.5 GM in SODIUM CHLORIDE 0.9% 100 ML IV (07:53)
--- NOTE | 2024-07-08 10:09 | PM.OP.COLON ---
Operative Date/Time/Diagnoses Date of procedure: 07/08/24 Time of procedure: 10:09 Pre-op diagnosis: High-risk colon screening Post-op diagnosis: same Procedure & Clinicians Study performed: Colonoscopy Same procedure as scheduled: Yes Indications: Father with colon cancer 71 Surgeon: Baudilio Robbins Procedure Notes SCOAP/Timeout: Performed Procedure in detail: Time-out was performed. Mac was induced. Patient was placed in left lateral decubitus position. The perineum was inspected without any gross abnormality. Lubricated pediatric colonoscope was inserted and advanced to the cecum. The terminal ileum was intubated. The colonoscope was withdrawn slowly inspecting the circumference of the colon. Very small polyps may have been missed, prep quality was adequate. Retroflexed view of the rectum showed small, non prolapsed nonbleeding internal hemorrhoids. The scope was withdrawn the patient was taken to PACU in good condition. Scope withdrawal time: 7 Sedation minutes: 11 Post-procedure Recommendations: Colonoscopy in 10 years Follow up: as needed Disposition: PACU
--- NOTE | 2024-07-08 10:23 | PM.CN ---
History of Present Illness Consult details Date Patient Seen: 07/08/24 Time Patient Seen: 10:23 Chief complaint: hernia surgery last week now stomache pains Reason for consult: Gallstone pancreatitis Narrative: 79-year-old white female underwent unremarkable hernia repair last week presents now with epigastric pain. Pancreatic enzymes were very high, MRCP showed inflammation without necrosis or pseudocyst. Normal size duct with question of distal filling defect. Gallstones in the gallbladder. Meds Home Medications and Allergies Home Medications Medication Instructions Recorded Confirmed Type losartan 100 mg tablet 100 mg PO DAILY #90 tabs 09/25/23 06/30/24 Rx simvastatin 40 mg tablet (Zocor) 40 mg PO HS #90 tabs 02/06/24 06/30/24 Rx blood sugar diagnostic (OneTouch #10 ea 05/14/24 06/10/24 History Verio test strips) hydrocodone 5 mg-acetaminophen 325 1 tab PO Q8H PRN pain #14 tabs 06/30/24 Rx mg tablet Allergies Allergy/AdvReac Type Severity Reaction Status Date / Time atorvastatin [ATORVASTATIN] Allergy Mild MUSCLE Verified 06/30/24 08:09 ACHE/LIPITOR rosuvastatin [From CRESTOR] Allergy Mild MUSCLE Verified 06/30/24 08:09 ACHE/ROSUVASTATIN lisinopril [LISINOPRIL] AdvReac Intermediate COUGH, Verified 06/30/24 08:09 HEADACHE Review of Systems Review of Systems ROS: Yes All systems reviewed with the patient and are negative except as otherwise documented Exam Vital Signs (past 8 hours): - 07/08/24 02:30 07/08/24 02:30 07/08/24 03:00 Pulse Rate 63 63 Respiratory Rate 17 17 Blood Pressure 148/66 H Pulse Oximetry 99 100 Oxygen Delivery Method Nasal Cannula Oxygen Flow Rate 2 07/08/24 03:01 07/08/24 03:01 07/08/24 05:03 Pulse Rate 73 107 H Respiratory Rate 18 Blood Pressure 135/63 Pulse Oximetry 100 94 Oxygen Delivery Method Nasal Cannula Oxygen Flow Rate 2 07/08/24 05:05 07/08/24 05:05 07/08/24 05:30 Pulse Rate 74 62 Respiratory Rate Blood Pressure 140/62 Pulse Oximetry 98 97 Oxygen Delivery Method Room Air Oxygen Flow Rate 07/08/24 05:30 07/08/24 06:00 07/08/24 06:01 Pulse Rate 62 Respiratory Rate Blood Pressure 148/64 H 119/56 L Pulse Oximetry 92 Oxygen Delivery Method Oxygen Flow Rate 07/08/24 06:01 07/08/24 06:06 07/08/24 06:06 Pulse Rate 65 59 L Respiratory Rate Blood Pressure 125/59 L Pulse Oximetry 92 97 Oxygen Delivery Method Nasal Cannula Oxygen Flow Rate 2 07/08/24 07:22 07/08/24 07:24 07/08/24 07:24 Pulse Rate 63 66 Respiratory Rate Blood Pressure 117/78 Pulse Oximetry 94 Oxygen Delivery Method Room Air Oxygen Flow Rate 07/08/24 07:30 07/08/24 08:00 07/08/24 08:01 Pulse Rate 59 L 54 L Respiratory Rate 15 15 Blood Pressure 140/63 Pulse Oximetry 90 L 100 Oxygen Delivery Method Room Air Oxygen Flow Rate 07/08/24 08:01 07/08/24 08:30 07/08/24 08:31 Pulse Rate 54 L 54 L Respiratory Rate 16 18 Blood Pressure 122/60 Pulse Oximetry 99 97 Oxygen Delivery Method Room Air Oxygen Flow Rate 07/08/24 08:31 07/08/24 09:00 07/08/24 09:01 Pulse Rate 58 L 52 L 53 L Respiratory Rate 24 15 18 Blood Pressure Pulse Oximetry 95 99 99 Oxygen Delivery Method Nasal Cannula Oxygen Flow Rate 2 07/08/24 09:01 Pulse Rate Respiratory Rate Blood Pressure 122/59 L Pulse Oximetry Oxygen Delivery Method Oxygen Flow Rate Oxygen Delivery Method Nasal Cannula Oxygen Flow Rate 2 Narrative Exam Narrative: Gen: NAD, sitting comfortably in bed, appears well HEENT: Sclera are anicteric, head is normocephalic and atraumatic, trachea is midline. CV: RRR, no JVD Resp: clear to auscultation bilaterally, equal chest wall movement bilaterally Abd: soft, mild tenderness epigastrium, normoactive bowel sounds Ext: no edema, full range of motion Neuro: Cranial nerves II-XII grossly intact, no focal deficits Skin: No erythema or ecchymosis Objective Labs 07/08/24 00:58 07/08/24 00:58 Labs: Laboratory Results - last 24 hr 07/08/24 07/08/24 07/08/24 00:58 03:04 05:57 WBC 8.4 RBC 3.40 L Hgb 10.4 L Hct 30.8 L MCV 90.8 MCH 30.5 MCHC 33.6 RDW 13.8 Plt Count 266 Neut % (Auto) 72.6 Lymph % (Auto) 15.4 L [place] % (Auto) 8.1 Eos % (Auto) 3.3 Baso % (Auto) 0.6 Neut # (Auto) 6100 Lymph # (Auto) 1300 [place] # (Auto) 700 Eos # (Auto) 300 Baso # (Auto) 0 Sodium 139 Potassium 3.9 Chloride 106 Carbon Dioxide 26 BUN 35 H Creatinine 1.55 H Estimated GFR 34 L BUN/Creatinine Ratio 22.6 H Glucose 251 H Lactate 1.8 1.0 Calcium 10.2 Total Bilirubin 0.9 AST 235 H ALT 117 H Alkaline Phosphatase 140 H Total Creatine Kinase 81 Troponin I 0.204 H* 0.258 H* Total Protein 6.4 Albumin 3.9 Globulin 2.5 Albumin/Globulin Ratio 1.6 Lipase 76519 H 45033 H PFSH Medical History Lichen sclerosus et atrophicus of the vulva (09/13/15) Atrophic vaginitis (09/13/15) Bilateral low back pain without sciatica (04/26/15) Right bundle branch block (RBBB) (04/26/15) Essential hypertension Mixed hyperlipidemia Type 2 diabetes mellitus without complication Polymyositis (04/24/11) GERD (gastroesophageal reflux disease) Spinal stenosis Surgical History Status post laminectomy (05/2015) Social History marital status: number of children: 2 household members: spouse lives independently: Yes caregiver/support person: No housing: house pets and animals: Yes education level: college ([employer]) occupational status: 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 (Retired) 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 travel history: over 6 months ago ([place] every September.) leisure activities: exercise, reading and other (Local travel, boating.) Tobacco & Substance Use Smoking Status: Former smoker Tobacco: How many years used: 30 Smokeless tobacco user: other (Cigarettes) quit status: quit date established (2000) second hand exposure: No alcohol intake: current substance use type: does not use Assessment & Plan Assessment and plan (1) Acute gallstone pancreatitis: Status: Acute Assessment & Plan narrative: Hydration over the next 24 hours to improve pancreatic enzymes, plan for laparoscopic cholecystectomy with cholangiography and possible laparoscopic common bile duct exploration on this admission. Risks, benefits, alternatives to laparoscopic cholecystectomy were explained to the patient and her . They agreed to proceed. They understand there has a risk of needing an ERCP if the ducts can not be cleared laparoscopically. They understand this is a procedure we do not perform at this facility and she would require transfer for ERCP is required. Time-Based Coding :: [TOTAL MINUTES] spent with patient and on the chart (including review of chart, obtaining history, exam, reviewing outside data, placing orders, documenting exam and treatment plan, and counseling patient) on [DATE].
[2024-07-08] MEDS: ACETAMINOPHEN IV 1,000 MG/100 ML VIAL 400 MG IV (11:12)
[2024-07-08] MEDS: SODIUM CHLORIDE 0.9% 1,000 ML 100 ML IV ×2 (11:12→21:15)
--- NOTE | 2024-07-08 11:37 | PC.NURSE ---
I started PRN IV tylenol. Paused tylenol shortly after infusion d/t elevated liver labs. I webexed Dr. Hair and he requests we stop tylenol. Tylenol infusion stopped. Pt is currently tolerating her abdominal pain of 4/10 and resting in bed on oxygen. No additional orders at this time.
--- NOTE | 2024-07-08 13:19 | PM.HP.1 ---
History of Present Illness History of Present Illness Date Patient Seen: 07/08/24 Time Patient Seen: 12:40 Date of Onset of Symptoms: 07/07/24 Chief complaint: hernia surgery last week now stomache pains Narrative: 79-year-old female with hypertension, eea-cocqgfc-aerbjrfhm diabetes, CKD stage 3 presenting for epigastric pain and nausea. She is postop day 9 s/p laparoscopic right inguinal hernia and right-sided spigelian hernia repair with Dr. De La Paz. Had been recovering well at home until yesterday. Reports that she had an had much appetite recently, had a piece of pizza around 4:00 p.m. and started having significant epigastric abdominal pain with associated nausea. She tried to gag/forced herself to vomit to alleviate discomfort but was unsuccessful in these attempts. Denies fever, chills, hematemesis, diarrhea. ER workup notable for H/H 10.4/30.8, BUN 35, creatinine 0.5, glucose 251, AST 235, ALT 117, alk-phos 140, troponin 0.204-> 0.258, lipase 48,850-> 25,950. Patient transported to [facility] for CT scan due to our machine being out of service. Preliminary report of CT abdomen/pelvis with contrast shows mild intrahepatic and extrahepatic biliary duct dilation. Thickening of the duodenal wall and prominent ampulla. Obstructing neoplasm not excluded. Cholelithiasis with mild gallbladder thickening also seen. There are trace perihepatic ascites. Subsequent MRCP showed acute interstitial pancreatitis without necrotic component or drainable fluid collection. Cholelithiasis with CBD measuring 5-6 millimeters, upper limit of normal. There is a questionable filling defect which may represent a tiny stone or sludge distally. No pancreatic ductal dilation or obstructing mass is seen.Per on-call senior account director, troponin elevation likely reflection of pancreatitis, recommends against anticoagulation. Dr. Robbins (on-call surgeon) reviewed imaging and recommends cholecystectomy for gallstone pancreatitis. [facility] Medical History Lichen sclerosus et atrophicus of the vulva (09/13/15) Atrophic vaginitis (09/13/15) Bilateral low back pain without sciatica (04/26/15) Right bundle branch block (RBBB) (04/26/15) Essential hypertension Mixed hyperlipidemia Type 2 diabetes mellitus without complication Polymyositis (04/24/11) GERD (gastroesophageal reflux disease) Spinal stenosis Surgical History Status post laminectomy (05/2015) Social History marital status: number of children: 2 household members: spouse lives independently: Yes caregiver/support person: No housing: house pets and animals: Yes education level: college ([employer]) occupational status: other (Retired) 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 [employer] travel history: over 6 months ago ([place] every September.) leisure activities: exercise, reading and other (Local travel, boating.) Smoking Status: Former smoker Tobacco: How many years used: 30 Smokeless tobacco user: other (Cigarettes) quit status: quit date established (2000) second hand exposure: No alcohol intake: current substance use type: does not use Meds Home Medications and Allergies Home Medications Medication Instructions Recorded Confirmed Type losartan 100 mg tablet 100 mg PO DAILY #90 tabs 09/25/23 07/08/24 Rx simvastatin 40 mg tablet (Zocor) 40 mg PO HS #90 tabs 02/06/24 07/08/24 Rx blood sugar diagnostic (OneTouch #10 ea 05/14/24 07/08/24 History Verio test strips) Allergies Allergy/AdvReac Type Severity Reaction Status Date / Time atorvastatin [ATORVASTATIN] Allergy Mild MUSCLE Verified 06/30/24 08:09 ACHE/LIPITOR rosuvastatin [From CRESTOR] Allergy Mild MUSCLE Verified 06/30/24 08:09 ACHE/ROSUVASTATIN lisinopril [LISINOPRIL] AdvReac Intermediate COUGH, Verified 06/30/24 08:09 HEADACHE Exam Vital Signs (past 8 hours): - 07/08/24 05:30 07/08/24 05:30 07/08/24 06:00 Temperature Pulse Rate 62 62 Respiratory Rate Blood Pressure 148/64 H Pulse Oximetry 97 92 Oxygen Delivery Method Oxygen Flow Rate 07/08/24 06:01 07/08/24 06:01 07/08/24 06:06 Temperature Pulse Rate 65 59 L Respiratory Rate Blood Pressure 119/56 L Pulse Oximetry 92 97 Oxygen Delivery Method Nasal Cannula Oxygen Flow Rate 2 07/08/24 06:06 07/08/24 07:22 07/08/24 07:24 Temperature Pulse Rate 63 66 Respiratory Rate Blood Pressure 125/59 L Pulse Oximetry 94 Oxygen Delivery Method Room Air Oxygen Flow Rate 07/08/24 07:24 07/08/24 07:30 07/08/24 08:00 Temperature Pulse Rate 59 L 54 L Respiratory Rate 15 15 Blood Pressure 117/78 Pulse Oximetry 90 L 100 Oxygen Delivery Method Room Air Oxygen Flow Rate 07/08/24 08:01 07/08/24 08:01 07/08/24 08:30 Temperature Pulse Rate 54 L 54 L Respiratory Rate 16 18 Blood Pressure 140/63 Pulse Oximetry 99 97 Oxygen Delivery Method Room Air Oxygen Flow Rate 07/08/24 08:31 07/08/24 08:31 07/08/24 09:00 Temperature Pulse Rate 58 L 52 L Respiratory Rate 24 15 Blood Pressure 122/60 Pulse Oximetry 95 99 Oxygen Delivery Method Oxygen Flow Rate 07/08/24 09:01 07/08/24 09:01 07/08/24 09:30 Temperature Pulse Rate 53 L Respiratory Rate 18 Blood Pressure 122/59 L 137/63 Pulse Oximetry 99 Oxygen Delivery Method Nasal Cannula Oxygen Flow Rate 2 07/08/24 09:30 07/08/24 10:00 07/08/24 10:00 Temperature Pulse Rate 53 L 56 L Respiratory Rate 14 25 H Blood Pressure 140/62 Pulse Oximetry 98 97 Oxygen Delivery Method Nasal Cannula Oxygen Flow Rate 2 07/08/24 10:30 07/08/24 10:31 07/08/24 10:31 Temperature Pulse Rate 57 L 55 L Respiratory Rate 22 25 H Blood Pressure 128/59 L Pulse Oximetry 98 98 Oxygen Delivery Method Nasal Cannula Oxygen Flow Rate 2 07/08/24 11:00 07/08/24 11:00 07/08/24 11:22 Temperature 98.1 F Pulse Rate 58 L Respiratory Rate 19 Blood Pressure 133/59 L Pulse Oximetry 96 Oxygen Delivery Method Nasal Cannula Oxygen Flow Rate 2 07/08/24 11:30 07/08/24 11:31 07/08/24 11:31 Temperature Pulse Rate 53 L 54 L Respiratory Rate 16 17 Blood Pressure 128/61 Pulse Oximetry 94 94 Oxygen Delivery Method Oxygen Flow Rate 07/08/24 12:00 07/08/24 12:01 07/08/24 12:01 Temperature Pulse Rate 54 L 55 L Respiratory Rate 13 19 Blood Pressure 115/57 L Pulse Oximetry 95 95 Oxygen Delivery Method Nasal Cannula Oxygen Flow Rate 2 07/08/24 12:54 Temperature 97.9 F Pulse Rate 61 Respiratory Rate 19 Blood Pressure 111/45 L Pulse Oximetry 98 Oxygen Delivery Method Oxygen Flow Rate 0 Oxygen Delivery Method Nasal Cannula Oxygen Flow Rate 0 Narrative Exam Narrative: General: Pleasant, NAD HEENT: NC/AT, EOMI, moist membranes CV: RRR, normal S1-S2, no m/g/r Resp: CTAB, comfortable WOB Abd: Soft, nondistended, TTP epigastrium, +BS Ext: No edema Skin: No rash or lesions noted Neuro: A&O x3, moves all extremities, no focal deficits Objective Labs 07/08/24 00:58 07/08/24 00:58 Labs: Laboratory Results - last 24 hr 07/08/24 07/08/24 07/08/24 00:58 03:04 05:57 WBC 8.4 RBC 3.40 L Hgb 10.4 L Hct 30.8 L MCV 90.8 MCH 30.5 MCHC 33.6 RDW 13.8 Plt Count 266 Neut % (Auto) 72.6 Lymph % (Auto) 15.4 L Fannin % (Auto) 8.1 Eos % (Auto) 3.3 Baso % (Auto) 0.6 Neut # (Auto) 6100 Lymph # (Auto) 1300 Fannin # (Auto) 700 Eos # (Auto) 300 Baso # (Auto) 0 Sodium 139 Potassium 3.9 Chloride 106 Carbon Dioxide 26 BUN 35 H Creatinine 1.55 H Estimated GFR 34 L BUN/Creatinine Ratio 22.6 H Glucose 251 H Lactate 1.8 1.0 Calcium 10.2 Total Bilirubin 0.9 AST 235 H ALT 117 H Alkaline Phosphatase 140 H Total Creatine Kinase 81 Troponin I 0.204 H* 0.258 H* Total Protein 6.4 Albumin 3.9 Globulin 2.5 Albumin/Globulin Ratio 1.6 Lipase 27135 H 43558 H Assessment & Plan Assessment & Plan narrative: 79-year-old female with hypertension, bxk-cuyjtkb-oqzioidkg diabetes, CKD stage 3 admitted for acute gallstone pancreatitis. #gallstone pancreatitis #elevated troponin #transaminitis MRCP confirms borderline dilated CBD with filling defect indicating small stone or sludge, hfxa-ox-bdgiqxdr pancreatic edema and surrounding edematous fat stranding, lipase significantly elevated at 48k downtrending to 25k over the course of 6 hours. No active ischemia demonstrated on EKG, troponin elevation likely secondary to pancreatitis per Cardiology. Elevated liver enzymes similarly likely due to combination of pancreatitis with obstructed CBD. -Zosyn q6h -IV Dilaudid q2h prn for pain -IV Zofran for nausea -bowel regimen -clear liquids today per surgeon, NPO AM for cholecystectomy tomorrow #HTN #NIDDM #CKD 3b -home atorvastatin, losartan -hold meds for surgery tomorrow Dispo: Acute care Diet: Clear liquid, NPO AM GI ppx: IV PPI DVT ppx: SCDs Code: FULL PCP: Luis Antonio MDM: Vahid Zaidi (, ) Time-Based Coding :: 30 minutes spent with patient and on the chart (including review of chart, obtaining history, exam, reviewing outside data, placing orders, documenting exam and treatment plan, and counseling patient) on 07/08/2024. Quality VTE Deep Vein Thrombosis/Pulmonary Embolism Present on Admission: No IH PROFEE Charge Codes Initial inpatient/observation care: 87910
[2024-07-08] MEDS: PIPERACILLIN/TAZO 3.375 GM in SODIUM CHLORIDE 0.9% 100 ML IV (16:39)
[2024-07-09] VITALS (12 sets, daily range): BP systolic 118–154; BP diastolic 38–78; PULSE 57–93; RESP 15–24; TEMP 36.1–37.7; O2SAT 91–99; BMI 27.8
--- NOTE | 2024-07-09 | PATH_ITS ---
[facility] Accession Number: [id number] No. of containers..01 Tissue . 01 Material submitted: . gallbladder - GALLBLADDER / CONTENTS . 01 Diagnosis: GALLBLADDER, CHOLECYSTECTOMY: Cholelithiasis with chronic cholecystitis and marked reactive changes. Negative for dysplasia or malignancy. MRV 07/20/2024 1206 Local . 01 Comment: The gallbladder is entirely submitted for histologic evaluation. No dysplasia or malignancy is seen. As part of routine quality specialist, Dr. Rodriguez has reviewed this case and agrees with the diagnosis above. . 01 Electronically signed: . Demetri Aleman MD, PhD, Pathologist NPI- [id number] . 01 Gross description: . Received in formalin with two identifiers and gallbladder and contents, is an intact gallbladder 7.6 x 2.9 x 2.9 cm with a full thickness defect 0.9 cm in greatest dimension. The cystic duct margin is inked blue, and no pericystic lymph node is identified. The lumen contains a dark roughened calculus 3.1 cm in greatest dimension grossly obstrucing the cystic duct admixed with a small amount of green viscous bile. The mucosa is green and velvety with numerous green polyps ranging from 0.1 to 0.5 cm in greatest dimension, and are grossly confined to the mucosa. Seam Press Operator sections to include the cystic duct margin and full thickness sections to include a majority of the polyps are submitted in cassettes A1-A3. ([id number]) . Remaining specimen is entirely submitted in cassetttes A4-A16. ([id number]) /GEOVANNA 07/20/2024 1159 Local . 01 Pathologist provided ICD-10: K80.60, K81.1 . 01 CPT . 312829 Specimen Comment: A courtesy copy of this report has been sent to [facility] Pathology Performed at: [address] [facility] [address] [address] [address] [address] [facility], [place], [place] [id number] MD Cachorro Rodriguez MD Phone: [phone]
[2024-07-09] MEDS: PIPERACILLIN/TAZO 3.375 GM in SODIUM CHLORIDE 0.9% 100 ML IV ×2 (00:50→07:00)
[2024-07-09 05:01] LABS: Add Manual Diff / Slide Review NO; Basophils Absolute Auto 0 /uL (0-100); Basophils Percent Auto 0.6 % (0-2); Eosinophils Absolute Auto 300 /uL (0-450); Eosinophils Percent Auto 6.4 % (2-4); Hematocrit 26.1 % (36-46); Hemoglobin 8.8 g/dL (12.0-16.0); Lymphocytes Absolute Auto 900 /uL (1100-4500); Lymphocytes Percent Auto 16.7 % (25-40); Mean Corpuscular HGB Conc 33.7 % (30-36); Mean Corpuscular Hemoglobin 30.8 PG (26-34); Mean Corpuscular Volume 91.5 fL (80-100); Monocytes Absolute Auto 500 /uL (0-900); Monocytes Percent Auto 8.7 % (3-14); Neutrophils Absolute Auto 3700 /uL (1500-7000); Neutrophils Percent Auto 67.6 % (50-75); Platelet Count 191 X10^3/uL (150-400); Red Blood Cell Count 2.85 X10^6/uL (4.0-5.2); White Blood Cell Count 5.4 X10^3/uL (4.5-11.0)
[2024-07-09 05:25] LABS: Alanine Aminotransferase 140 IU/L (<35); Albumin 2.8 g/dL (3.5-5.0); Albumin Globulin Ratio 1.2 (1.0-2.8); Alkaline Phosphatase 103 U/L (38-126); Aspartate Aminotransferase 106 IU/L (14-36); BUN Creatinine Ratio 18.5 (6-22); Bilirubin Total 0.5 mg/dL (0.2-1.3); Blood Urea Nitrogen 25 mg/dL (7-17); Carbon Dioxide 22 mmol/L (22-32); Chloride 113 mmol/L (98-107); Estimated Glomerular Filt Rate 40 mL/min (>60); Globulin 2.4 g/dL (1.7-4.1); Glucose 123 mg/dL (80-110); HEMOLYSIS < 15 (0-50); Potassium 3.9 mmol/L (3.4-5.1); Sodium 138 mmol/L (137-145); Total Protein 5.2 g/dL (6.3-8.2)
[2024-07-09 05:37] LABS: Lipase 2545 U/L (23-300)
[2024-07-09 05:39] LABS: Troponin I 0.188 ng/mL (0.01-0.034)
[2024-07-09] MEDS: PANTOPRAZOLE DR 20 MG TABLET PO (06:52)
--- NOTE | 2024-07-09 07:39 | PM.PN.1 ---
Subjective Subjective Date Patient Seen: 07/09/24 Time Patient Seen: 07:39 Interval history: 79 year old female admitted yesterday with presumed gallstone pancreatitis, with lipase in excess of 25,000. Coincidentally and probably not connected she had recently had a repair of a right inguinal hernia (June 30) In addition she was found to have an elevated troponin but Cardiology was consulted over the phone and convinced this related to her pancreatitis rather than cardiac ischemia She had MRCP performed and general surgery was consulted. They agreed she would benefit from cholecystectomy and may or may not need follow-up ERCP This morning lipase is vastly improved at only 2500. Patient has remained NPO. Remainder of her labs are unremarkable. Exam Vital Signs (past 8 hours): - 07/09/24 02:00 Temperature 98.6 F Pulse Rate 83 Respiratory Rate 18 Blood Pressure 134/48 L Pulse Oximetry 96 Oxygen Flow Rate 0 Oxygen Delivery Method Nasal Cannula Oxygen Flow Rate 0 Objective Labs 07/09/24 04:06 07/09/24 04:06 Labs: Laboratory Results - last 24 hr 07/09/24 04:06 WBC 5.4 RBC 2.85 L Hgb 8.8 L Hct 26.1 L MCV 91.5 MCH 30.8 MCHC 33.7 RDW 14.0 Plt Count 191 Neut % (Auto) 67.6 Lymph % (Auto) 16.7 L Refugio % (Auto) 8.7 Eos % (Auto) 6.4 H Baso % (Auto) 0.6 Neut # (Auto) 3700 Lymph # (Auto) 900 L Refugio # (Auto) 500 Eos # (Auto) 300 Baso # (Auto) 0 Sodium 138 Potassium 3.9 Chloride 113 H Carbon Dioxide 22 BUN 25 H Creatinine 1.35 H Estimated GFR 40 L BUN/Creatinine Ratio 18.5 Glucose 123 H D Calcium 9.0 Total Bilirubin 0.5 AST 106 H ALT 140 H Alkaline Phosphatase 103 Troponin I 0.188 H* Total Protein 5.2 L Albumin 2.8 L Globulin 2.4 Albumin/Globulin Ratio 1.2 Lipase 2545 H D [facility] Medical History Lichen sclerosus et atrophicus of the vulva (09/13/15) Atrophic vaginitis (09/13/15) Bilateral low back pain without sciatica (04/26/15) Right bundle branch block (RBBB) (04/26/15) Essential hypertension Mixed hyperlipidemia Type 2 diabetes mellitus without complication Polymyositis (04/24/11) GERD (gastroesophageal reflux disease) Spinal stenosis Surgical History Status post laminectomy (05/2015) Social History marital status: number of children: 2 household members: spouse lives independently: Yes caregiver/support person: No housing: house pets and animals: Yes education level: college ([employer]) 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 Gallstone pancreatitis-pancreatic enzymes vastly improved. Plan for surgery later today as per General surgery. Hopefully they can clear the common bile duct and she will not need another procedure 2. Elevated troponin-no other evidence of ischemia. Suggest outpatient evaluation for cardiac disease when recovered from cholecystectomy, sooner if any additional symptoms 3. Diabetes-adequate control of blood sugar for now. Continue with insulin coverage 4. Hypertension-blood pressure acceptable for now. When able to take orals resume usual meds Time-Based Coding :: [TOTAL MINUTES] spent with patient and on the chart (including review of chart, obtaining history, exam, reviewing outside data, placing orders, documenting exam and treatment plan, and counseling patient) on [DATE]. Quality VTE Deep Vein Thrombosis/Pulmonary Embolism Present on Admission: No IH PROFEE Charge codes Subsequent inpatient/observation care: [id number]
--- NOTE | 2024-07-09 12:41 | CM.DANOTE ---
Initial DCP Assessment Note Pt is a 79 yo female, resident of [place], arrives with abd pain, found to have gallstone pancreatitis and scheduled for lap kari with Dr Robbins. Patient is s/p Hernia repair with mesh done 06/30. PCP: Moe Salmon Payer: Joe MCGILL Reviewed chart, met w/patient and her spouse. Patient reports she lives independently with her , no hx of HH or SNF. Patient plans to return home w/family upon discharge-No barriers identified at this time to patient's safe discharge home w/family to assist; close outpatient f/u recommended. CM team will plan to follow clinical course closely in case any DC needs or concerns arise. MARK Harry Discharge Planning/Care Management CM Discharge Assessment Start: 07/09/24 12:31 Freq: Status: Active Protocol: Document 07/09/24 12:33 MARY (Rec: 07/09/24 12:41 MARY [id number]) Discharge Planning Assessment Assigned Gore Cutter MARK Escalante DPOA/Assigned Designee Name Vahid Zaidi, spouse Contact Information [phone] home [phone] Advance Directives? No History Provided By Patient,Significant Other, Medical Record Has Patient been admitted in last 30 No days? Comment Lap Hernia repair 06.30.24 Prior Living Arrangements House Household Members spouse Type of transporation used prior to Drives own vehicle admit Independent with ADL's Yes Is patient alert and oriented? Yes Comment NO AD Barriers to Discharge No Discharge Plan Home Transportation Arrangement Spouse Referrals Initiated None needed Whiteboard Updated in Patient Room with Yes name and ext. # of Gore Cutter
[2024-07-09] MEDS: LACTATED RINGERS 1,000 ML 42 ML IV (13:24)
--- NOTE | 2024-07-09 14:15 | DI.RAD.S_ITS ---
PROCEDURE: XR CHOLANGIOGRAM OPERATIVE INDICATIONS: SURGERY COMPARISON: None. FINDINGS: Biliary ducts: The surgeon injected contrast into the biliary ducts after cannulation of the cystic duct stump. Visualized intra- and extrahepatic bile ducts are normal in caliber, without strictures. No intraluminal filling defects to suggest retained ductal stones or sludge. No evidence for iatrogenic ductal injury. Duodenum: Contrast flows promptly through the sphincter of Oddi into the duodenum, which appears normal in caliber. IMPRESSION: No filling defects within the opacified common bile duct. Dictated by: Chris Morrell M.D. on 07/09/2024 at 20:17 Approved by: Chris Morrell M.D. on 07/09/2024 at 20:17
--- NOTE | 2024-07-09 15:06 | SUR.OPER ---
FLURO TIME FOR IOC 10 SEC
[2024-07-09] MEDS: BUPIVACAINE 0.5% W/ EPI (PF) 30 ML VIAL INJ (15:14)
[2024-07-09] MEDS: ACETAMINOPHEN IV 1,000 MG/100 ML VIAL 100 MG IV (15:15)
[2024-07-09] MEDS: iopamidoL 30 ML VIAL INJ (15:16)
--- NOTE | 2024-07-09 15:39 | P.OP_ITS ---
Operative Date/Time/Diagnoses Date of procedure: 07/09/24 Time of procedure: 15:39 Pre-op diagnosis: Gallstone pancreatitis Post-op diagnosis: same Procedure & Clinicians Procedure: Laparoscopic cholecystectomy with cholangiography Same procedure as scheduled: Yes Indications: Gallstone pancreatitis Surgeon: Baudilio Robbins Click Yes if Unassisted: Yes Anesthesia Type: General Operative Notes Findings: Large stone within the gallbladder, Normal biliary tree with emptying into the duodenal and visualization of the pancreatic duct without ductal stones Closure Type: primary Specimen(s): other (Gallbladder and contents) Procedure in detail: Patient was seen in the preoperative holding area. Consent was obtained. Patient was brought to the operating room suite. General anesthesia was induced. Time-out was performed. The abdomen is prepped and draped in the usual fashion. The patient was placed in the supine position. With the arms out. 5 mm optical trocar was placed in left upper quadrant, pneumoperitoneum was achieved. The abdomen was inspected. The previous right inguinal hernia repair appeared to be intact. An 11 mm trocar was placed at the umbilicus. Two 5 mm trocar was placed in the right upper quadrant. There was some evidence of inflammation and fatty necrosis indicating the pancreatitis around the biliary anatomy. The medial and lateral attachments of the gallbladder were opened with Bovie electrocautery. A single cystic duct and single cystic artery were is olated and a critical view. The artery was doubly clipped and divided. The cystic duct was clipped at the level of the infundibulum. An incision was made in the cystic duct through which a cholangiogram catheter was placed. Cholangiogram was obtained which showed bilateral intrahepatic ductal filling, prompt emptying into the duodenum, visualization of the pancreatic duct without any signs of filling defects or strictures. This completed the cholangiography. The cystic duct was then triply clipped and divided. Bovie electrocautery was used to remove the gallbladder from the gallbladder bed. There was no spillage of bile, bladder stones. The gallbladder was brought out through the umbilical trocar in an Endo-Catch bag. The abdomen was inspected. The umbilical port site was closed with an 0 Vicryl on a Garrett Moy suture Passer. Pneumoperitoneum was relieved. Skin was closed with 4-0 Monocryl and Dermabond. Complications: none Post-operative Condition: stable Disposition: PACU Plan for aftercare: inpatient bed
[2024-07-09] MEDS: OXYCODONE IR 5 MG TABLET PO (15:44)
[2024-07-09] MEDS: ONDANSETRON 4 MG/2 ML INJ IV (15:44)
[2024-07-09] MEDS: hydrOXYzine HCL 25 MG TABLET PO (15:45)
[2024-07-09] MEDS: CELECOXIB 200 MG CAPSULE PO ×2 (16:34→21:00)
[2024-07-09] MEDS: TIZANIDINE 4 MG TABLET 2 MG PO (16:34)
[2024-07-09] MEDS: ATORVASTATIN 20 MG TABLET 40 MG PO (21:00)
[2024-07-09] MEDS: ACETAMINOPHEN 325 MG TABLET 650 MG PO (22:00)
[2024-07-10 02:00] VITALS: BP 119/64; PULSE 67; RESP 18; TEMP 36.3; O2SAT 93
[2024-07-10 05:19] LABS: Add Manual Diff / Slide Review NO; Basophils Absolute Auto 0 /uL (0-100); Basophils Percent Auto 0.2 % (0-2); Eosinophils Absolute Auto 0 /uL (0-450); Eosinophils Percent Auto 0.2 % (2-4); Hematocrit 25.8 % (36-46); Hemoglobin 8.6 g/dL (12.0-16.0); Lymphocytes Absolute Auto 600 /uL (1100-4500); Lymphocytes Percent Auto 9.1 % (25-40); Mean Corpuscular HGB Conc 33.3 % (30-36); Mean Corpuscular Hemoglobin 30.7 PG (26-34); Mean Corpuscular Volume 92.1 fL (80-100); Monocytes Absolute Auto 400 /uL (0-900); Monocytes Percent Auto 5.9 % (3-14); Neutrophils Absolute Auto 5200 /uL (1500-7000); Neutrophils Percent Auto 84.6 % (50-75); Platelet Count 181 X10^3/uL (150-400); Red Cell Distribution Width 13.8 % (11.6-14.8); White Blood Cell Count 6.2 X10^3/uL (4.5-11.0)
[2024-07-10 05:39] LABS: BUN Creatinine Ratio 18.4 (6-22); Blood Urea Nitrogen 28 mg/dL (7-17); Calcium 9.2 mg/dL (8.4-10.2); Carbon Dioxide 21 mmol/L (22-32); Chloride 111 mmol/L (98-107); Estimated Glomerular Filt Rate 35 mL/min (>60); Glucose 140 mg/dL (80-110); HEMOLYSIS < 15 (0-50); Lipase 225 U/L (23-300); Potassium 4.2 mmol/L (3.4-5.1); Sodium 136 mmol/L (137-145)
--- NOTE | 2024-07-10 05:58 | PC.NURSE ---
can cleaner Patient HR was in upper 50's start of shift while sleeping. Day shift reported that patient normally is in 50's HR when sleeping. RN went into Pt room for Pt check and noted HR in the lower 40's, RN woke Pt and HR immediately nimisha to upper 60's. this RN notified FURNACE TENDER and tele was placed. pharmaceutical operator notified, MD will be notified.
[2024-07-10 05:59] LABS: Magnesium 1.7 mg/dL (1.6-2.3)
--- NOTE | 2024-07-10 07:38 | PM.PN.1 ---
Subjective Subjective Date Patient Seen: 07/10/24 Time Patient Seen: 07:38 Interval history: Patient underwent successful laparoscopic cholecystectomy yesterday. Bile duct appeared to be clear Lab work this morning shows persistence of some mild anemia but otherwise normalization of lipase and chemistries otherwise normal Patient's heart rate was noted to be in the 40s last night so they put her on telemetry. It quickly popped back up and has not recurred. Patient was asymptomatic, and was aware when they put telemetry on etcetera She ate small amounts last evening without difficulty. Breakfast has yet to arrive this morning Exam Vital Signs (past 8 hours): - 07/10/24 02:00 Temperature 97.3 F L Pulse Rate 67 Respiratory Rate 18 Blood Pressure 119/64 Pulse Oximetry 93 Oxygen Flow Rate 0 Oxygen Delivery Method Room Air Oxygen Flow Rate 0 Objective Labs 07/10/24 04:46 07/10/24 04:46 Labs: Laboratory Results - last 24 hr 07/10/24 04:46 WBC 6.2 RBC 2.80 L Hgb 8.6 L Hct 25.8 L MCV 92.1 MCH 30.7 MCHC 33.3 RDW 13.8 Plt Count 181 Neut % (Auto) 84.6 H Lymph % (Auto) 9.1 L Gosper % (Auto) 5.9 Eos % (Auto) 0.2 L Baso % (Auto) 0.2 Neut # (Auto) 5200 Lymph # (Auto) 600 L Gosper # (Auto) 400 Eos # (Auto) 0 Baso # (Auto) 0 Sodium 136 L Potassium 4.2 Chloride 111 H Carbon Dioxide 21 L BUN 28 H Creatinine 1.52 H Estimated GFR 35 L BUN/Creatinine Ratio 18.4 Glucose 140 H Calcium 9.2 Magnesium 1.7 Lipase 225 D [facility] Medical History Lichen sclerosus et atrophicus of the vulva (09/13/15) Atrophic vaginitis (09/13/15) Bilateral low back pain without sciatica (04/26/15) Right bundle branch block (RBBB) (04/26/15) Essential hypertension Mixed hyperlipidemia Type 2 diabetes mellitus without complication Polymyositis (04/24/11) GERD (gastroesophageal reflux disease) Spinal stenosis Surgical History Status post laminectomy (05/2015) Social History marital status: number of children: 2 household members: spouse lives independently: Yes caregiver/support person: No housing: house pets and animals: Yes education level: college ([employer]) 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 Postop day 1 status post laparoscopic cholecystectomy-continue management as per General surgery. Suspect patient will be okay to go home today 2. Diabetes-adequate control of blood sugars. She can go home and resume her diabetic diet. She has not required any oral hypoglycemics thus far 3. Hypertension-continue patient's home meds upon discharge 4. Anemia-this can be addressed as an outpatient, no evidence of active large volume bleeding 5. Elevated troponin-will plan for outpatient cardiac evaluation 6. Bradycardia-likely secondary to her postoperative process. She was on no AV cintia or other medications that should affect that. No concerns. Overall patient is medically ready for discharge can be discharged when felt to be appropriate as per General surgery Time-Based Coding :: [TOTAL MINUTES] spent with patient and on the chart (including review of chart, obtaining history, exam, reviewing outside data, placing orders, documenting exam and treatment plan, and counseling patient) on [DATE]. Quality VTE Deep Vein Thrombosis/Pulmonary Embolism Present on Admission: No IH PROFEE Charge codes Subsequent inpatient/observation care: 83497
[2024-07-10 08:00] VITALS: BP 160/65; PULSE 65; RESP 14; TEMP 36.8; O2SAT 95
[2024-07-10 08:29] VITALS: BP 106/61; PULSE 65
[2024-07-10] MEDS: LOSARTAN 50 MG TABLET 100 MG PO (08:29)
[2024-07-10] MEDS: LIDOCAINE 5% PATCH 1 EACH TOP (08:30)
[2024-07-10] MEDS: ACETAMINOPHEN 325 MG TABLET 650 MG PO (08:30)
[2024-07-10] MEDS: CELECOXIB 200 MG CAPSULE PO (08:30)
--- NOTE | 2024-07-10 11:32 | CM.DPNOTE ---
DCP Cont Reviewed chart. Patient doing well s/p laparoscopic cholecystectomy. Medicine attending, surgery consulted. Patient is likely to discharge home today. No needs from this CM team identified. Plan: Discharge home w/sp, close outpatient follow up recommended. MARY
[2024-07-10] MEDS: MAGNESIUM CHLORIDE 64 MG TABLET 128 MG PO (12:16)
--- NOTE | 2024-07-10 14:34 | P.DS_ITS ---
History of Present Illness History of Present Illness Date Patient Seen: 07/10/24 Time Patient Seen: 14:34 Chief complaint: hernia surgery last week now stomache pains Narrative: 79-year-old female underwent hernia surgery last week was found to have gallstone pancreatitis in the ER. Underwent laparoscopic cholecystectomy with cholangiography. Recovered well. Discharge Providers Provider Date of admission: 07/08/24 10:29 Discharge Date: 07/10/24 Primary care physician: Moe Salmon MD Consults: 07/08/24 08:37 Consult to General Surgery Stat Comment: Consulting Provider: Baudilio Robbins Reason for consultation: Abdominal pain/pancreatitis Has provider been notified: Yes Discharge provider: Baudilio Robbins MD Summary Hospital Course Discharge Diagnosis: Gallstone pancreatitis Hospital Course: 79-year-old female underwent hernia surgery last week was found to have gallstone pancreatitis in the ER. Underwent laparoscopic cholecystectomy with cholangiography. Recovered well. Status at Discharge Cognitive/behavioral status at discharge: oriented Functional status at discharge: independent ambulation Overall status at discharge: patient is back to baseline Time Spent with Patient Time spent: Less than 30 minutes Exam Vital Signs (past 8 hours): - 07/10/24 08:00 07/10/24 08:00 07/10/24 08:29 Temperature 98.2 F Pulse Rate 65 65 Respiratory Rate 14 Blood Pressure 160/65 H 106/61 Pulse Oximetry 95 Oxygen Delivery Method Room Air Oxygen Flow Rate 0 Oxygen Delivery Method Room Air Oxygen Flow Rate 0 Narrative Exam Narrative: Gen: NAD, sitting comfortably in bed, appears well HEENT: Sclera are anicteric, head is normocephalic and atraumatic, trachea is midline. CV: RRR, no JVD Resp: clear to auscultation bilaterally, equal chest wall movement bilaterally Abd: soft, nontender, normoactive bowel sounds Ext: no edema, full range of motion Neuro: Cranial nerves II-XII grossly intact, no focal deficits Skin: No erythema or ecchymosis Objective Labs 07/10/24 04:46 07/10/24 04:46 Labs: Laboratory Results - last 24 hr 07/10/24 04:46 WBC 6.2 RBC 2.80 L Hgb 8.6 L Hct 25.8 L MCV 92.1 MCH 30.7 MCHC 33.3 RDW 13.8 Plt Count 181 Neut % (Auto) 84.6 H Lymph % (Auto) 9.1 L [place] % (Auto) 5.9 Eos % (Auto) 0.2 L Baso % (Auto) 0.2 Neut # (Auto) 5200 Lymph # (Auto) 600 L [place] # (Auto) 400 Eos # (Auto) 0 Baso # (Auto) 0 Sodium 136 L Potassium 4.2 Chloride 111 H Carbon Dioxide 21 L BUN 28 H Creatinine 1.52 H Estimated GFR 35 L BUN/Creatinine Ratio 18.4 Glucose 140 H Calcium 9.2 Magnesium 1.7 Lipase 225 D [facility] Medical History Lichen sclerosus et atrophicus of the vulva (09/13/15) Atrophic vaginitis (09/13/15) Bilateral low back pain without sciatica (04/26/15) Right bundle branch block (RBBB) (04/26/15) Essential hypertension Mixed hyperlipidemia Type 2 diabetes mellitus without complication Polymyositis (04/24/11) GERD (gastroesophageal reflux disease) Spinal stenosis Surgical History Status post laminectomy (05/2015) Social History marital status: number of children: 2 household members: spouse lives independently: Yes caregiver/support person: No housing: house pets and animals: Yes education level: college ([employer]) occupational status: other (Retired) Previous occupational history: [employer] travel history: over 6 months ago ([place] every September.) leisure activities: exercise, reading and other (Local travel, boating.) Smoking Status: Former smoker Tobacco: How many years used: 30 Smokeless tobacco user: other (Cigarettes) quit status: quit date established (2000) second hand exposure: No alcohol intake: current substance use type: does not use Discharge Plan Discharge Plan Patient Disposition: Home Discharge orders & Medications Prescriptions: Continued losartan 100 mg tablet 100 mg PO DAILY Qty: 90 3RF simvastatin [Zocor] 40 mg tablet 40 mg PO HS Qty: 90 3RF (DME) OneTouch Verio test strips Strip See Rx Instructions .ROUTE DAILY Qty: 10 Rx Instructions: As directed Follow up/Referrals: Moe Salmon MD [Primary Care Provider] - (As previously scheduled, on Jul 31, 2024) Diet/Activity/Treatments Diet: Regular Skin/Wound/Dressing Care Report to your healthcare provider any signs of infection, such as:: chills, fever, night sweats, increased pain, unusual drainage and unusual redness Visit Report/Discharge Packet Instructions: DI for Laparoscopic Cholecystectomy Stand Alone Forms: Patient Portal/API, Stroke Signs & Symptoms Discharge Data Primary Care Provider: Moe Salmon VTE Deep Vein Thrombosis/Pulmonary Embolism Present on Admission: No
--- NOTE | 2024-07-10 15:05 | PC.NURSE ---
Pt discharged home at 1450, escorted off floor in wheelchair accompanied by spouse and hospital staff. IV removed, discharge teaching completed including wound care, worsening symptoms and follow up appointment. Patient left the floor with all belongings.
== END 2024-07-10 14:55 | disposition home or self-care (01) | DRG 419 ==
LOC: ED 09:56 → AC 10:49
PROVIDERS: Emergency Medicine; Surgery; Admitting Provider Family Medicine; Emergency Provider Emergency Medicine; PCP Internal Medicine; Referring Provider Emergency Medicine; Visit Provider Internal Medicine
PROC: 0FT44ZZ Resection of Gallbladder, Percutaneous Endoscopic Approach (ICD-10-PCS; CPT 47563; principal; 2024-07-09 14:15)
DX: K85.10 Biliary acute pancreatitis without necrosis or infection (principal); I12.9 Hypertensive chronic kidney disease with stage 1 through stage 4 chronic kidney disease, or unspecified chronic kidney disease; E11.22 Type 2 diabetes mellitus with diabetic chronic kidney disease; R79.89 Other specified abnormal findings of blood chemistry; N18.32 Chronic kidney disease, stage 3b; D63.1 Anemia in chronic kidney disease; E78.2 Mixed hyperlipidemia; Z87.891 Personal history of nicotine dependence; Z98.890 Other specified postprocedural states; Z87.19 Personal history of other diseases of the digestive system
CPT/HCPCS: 36415; 47563; 71045; 74183; 74300; 80048; 80053; 82550; 82962; 83605; 83690; 83735; 84484; 85025; 87040; 93005; 96361; 96365; 96375; 99222; 99233; 99285; A9270; A9579; J0134; J1100; J1171; J2270; J2405; J2543; J2704; J3010; Q9967

== ENCOUNTER → 2024-07-31 07:06 | Outpatient (CLI) | payer OTHER, SELFPAY ==
[2024-07-08 12:29] VITALS: BMI 27.8
[2024-07-31 08:26] LABS: Hemoglobin A1C% w Est Avg Glu 6.1 % (4.0-6.0)
[2024-07-31 08:47] LABS: Cholesterol 189 mg/dL (140-199); HDL Cholesterol 64 mg/dL (40-60); LDL Cholesterol Calculated 109 mg/dL (<100); Triglycerides 81 mg/dL (35-150)
== END ==
PROVIDERS: PCP Internal Medicine; Referring Provider Internal Medicine; Visit Provider Internal Medicine
DX: E78.2 Mixed hyperlipidemia (principal); N18.30 Chronic kidney disease, stage 3 unspecified; I12.9 Hypertensive chronic kidney disease with stage 1 through stage 4 chronic kidney disease, or unspecified chronic kidney disease; E11.9 Type 2 diabetes mellitus without complications
CPT/HCPCS: 36415; 80061; 83036

== ENCOUNTER → 2025-03-30 13:05 | Outpatient (CLI) | payer OTHER, SELFPAY ==
[2024-07-08 12:29] VITALS: BMI 27.8
[2025-03-30 14:17] LABS: Hemoglobin A1C% w Est Avg Glu 6.4 % (4.0-6.0)
[2025-03-30 14:22] LABS: Alanine Aminotransferase 17 IU/L (<35); Albumin 4.1 g/dL (3.5-5.0); Albumin Globulin Ratio 1.8 (1.0-2.8); Alkaline Phosphatase 74 U/L (38-126); Blood Urea Nitrogen 36 mg/dL (7-17); Calcium 10.2 mg/dL (8.4-10.2); Carbon Dioxide 23 mmol/L (22-32); Chloride 106 mmol/L (98-107); Cholesterol 188 mg/dL (140-199); Estimated Glomerular Filt Rate 35 mL/min (>60); Globulin 2.3 g/dL (1.7-4.1); Glucose 118 mg/dL (70-99); HDL Cholesterol 75 mg/dL (40-60); HEMOLYSIS < 15 (0-50); Potassium 4.7 mmol/L (3.4-5.1); Sodium 137 mmol/L (137-145); Total Protein 6.4 g/dL (6.3-8.2); Triglycerides 102 mg/dL (35-150)
== END ==
PROVIDERS: PCP Internal Medicine; Referring Provider Internal Medicine; Visit Provider Internal Medicine
DX: E11.9 Type 2 diabetes mellitus without complications (principal); I10 Essential (primary) hypertension; E78.2 Mixed hyperlipidemia
CPT/HCPCS: 36415; 80053; 80061; 83036